=== PATIENT | female | born 1935 | race Caucasian/White ===

== ENCOUNTER 2018-12-11 16:06 | Inpatient (IN) | payer MEDICARE, BC ==
[~2018-12-11] VITALS: Ht 167.6 cm; Wt 83.0 kg
[2018-12-11 16:43] LABS: BASOPHILS % (AUTO) 0.5 % (0.0-2.0); HEMATOCRIT 31 % (33-45); HEMOGLOBIN 10.5 g/dL (11.5-14.8); LYMPHOCYTES # (AUTO) 1.2 /CMM (0.8-4.8); LYMPHOCYTES % (AUTO) 24.9 % (20.0-44.0); MEAN CORPUSCULAR HGB CONC 34 g/dl (31.0-36.0); MEAN CORPUSCULAR VOLUME 102 fL (82-100); MONOCYTES # (AUTO) 0.3 /CMM (0.1-1.30); MONOCYTES % (AUTO) 6.9 % (2.0-12.0); NEUTROPHILS % (AUTO) 63.7 % (43.0-81.0); PLATELET COUNT (AUTO) 138 /CMM (150-450); RED BLOOD CELL COUNT(AUTO) 3.09 MIL/uL (4.0-5.2); WHITE BLOOD COUNT (AUTO) 4.7 K/uL (4.3-11.0)
[2018-12-11 16:50] LABS: CALCIUM, SERUM 8.3 mg/dL (8.5-10.1); CARBON DIOXIDE 25 mmol/L (21-32); CHLORIDE 106 mmol/L (98-107); CREATININE 1.9 mg/dL (0.6-1.3); GLUCOSE 183 mg/dL (74-106); POTASSIUM 4.1 mmol/L (3.5-5.1); SODIUM SERUM 139 mmol/L (136-145); UREA NITROGEN, BLOOD 27 mg/dL (7-18)
[2018-12-11 16:56] LABS: ACETAMINOPHEN 2 ug/ml (10-30); ALANINE AMINOTRANSFERASE 17 U/L (12-78); ALBUMIN 3.1 g/dL (3.4-5.0); ALCOHOL, BLOOD < 3 mg/dL (0-0); ALKALINE PHOSPHATASE 66 U/L (46-116); ASPARTATE AMINOTRANSFERASE 15 U/L (15-37); BILIRUBIN,TOTAL 0.1 mg/dL (0.2-1.0); SALICYLATE 0.8 mg/dL (2.8-20.0); TOTAL PROTEIN, SERUM 6.6 g/dL (6.4-8.2)
--- NOTE | 2018-12-11 17:12 | NUR ---
BIB SON CLEARANCE FOR PSYCH ADMISSION, WORSENING DEMENTIA. PT AAOX3, VSS. DENIES CP, SOB, DIZZINESS, N/V, WEAKNESS AT THIS TIME. PT SEEN & EVAL'D BY DR. RICHTER. FAMILY AT BS & WILL CONT TO MONITOR.
--- NOTE | 2018-12-11 17:14 | NUR ---
YOLI CALLED FOR PSYCH EVAL. ETA 40 MINS.
[2018-12-11 17:41] LABS: APPEARANCE,URINE Clear (CLEAR); BILIRUBIN,URINE Negative (NEGATIVE); BLOOD, URINE Trace-intact Ery/uL (NEGATIVE); COLOR,URINE Yellow (YELLOW); KETONES,URINE Negative (NEGATIVE); LEUKOCYTE ESTERASE ,URINE Small (NEGATIVE); NITRITE, URINE Negative (NEGATIVE); PH,URINE 5.5 (5.0-8.0); PROTEIN,URINE Negative (NEGATIVE); UGLUCOSE Negative (NEGATIVE); UROBILINOGEN,URINE 0.2 EU/dL (0.2)
[2018-12-11 17:57] LABS: RBC,URINE 0-3 /HPF (0-2)
[2018-12-11 17:58] LABS: SQUAMOUS EPITHELIAL CELL,UR Few /HPF (None Seen)
[2018-12-11 17:59] LABS: BACTERIA,URINE Few /HPF (None Seen)
[2018-12-11] MEDS ORDERED: CEPHALEXIN MONOHYDRATE 500 MG CAPSULE PO ONE ×2 (18:00→18:10)
[2018-12-11] MEDS ORDERED: IBUP-1953 PO (18:50)
[2018-12-11] MEDS ORDERED: ESCI10TA PO (18:50)
[2018-12-11] MEDS ORDERED: MULT-447 PO (18:50)
[2018-12-11] MEDS ORDERED: ACET-868 PO (18:50)
[2018-12-11] MEDS ORDERED: GABA-532 PO (18:50)
[2018-12-11] MEDS ORDERED: LEVO75TA7 PO (18:50)
[2018-12-11] MEDS ORDERED: CHOL100040 PO (18:50)
[2018-12-11] MEDS ORDERED: ACET325T53 PO (18:50)
[2018-12-11] MEDS ORDERED: MELA3TAB PO (18:50)
[2018-12-11] MEDS ORDERED: AMLO10TA4 PO (18:50)
[2018-12-11] MEDS ORDERED: DONE5TAB34 PO (18:50)
[2018-12-11] MEDS ORDERED: MOME45CR20 TP (18:50)
[2018-12-11] MEDS ORDERED: LIDO28.310 TP (18:50)
[2018-12-11] MEDS ORDERED: MEMA28CA PO (18:50)
[2018-12-11] MEDS ORDERED: HYDR-4384 PO (18:50)
[2018-12-11] MEDS ORDERED: CALC-903 PO (18:50)
[2018-12-11] MEDS ORDERED: LACT-179 PO (18:50)
[2018-12-11] MEDS ORDERED: HYDR453.3 TP (18:50)
[2018-12-11] MEDS ORDERED: LISI10TA5 PO (18:50)
[2018-12-11] MEDS ORDERED: LORA0.5T PO (18:50)
[2018-12-11] MEDS ORDERED: [UNRECOGNIZED DRUG - OTHER] (18:50)
--- NOTE | 2018-12-11 19:01 | NUR ---
REPORT GIVEN TO AMANDA PAEZ. AWAITING TRANSFER TO FLOOR.
[2018-12-11 19:53] VITALS: BP 118/76
[2018-12-11] MEDS ORDERED: MAGNESIUM HYDROXIDE 30 ML UDC PO PRN (20:00)
[2018-12-11] MEDS ORDERED: MAG HYDROX/AL HYDROX/SIMETH 30 ML UDC PO PRN (20:00)
--- NOTE | 2018-12-11 20:00 | NUR ---
ADMITTED THIS 83 YEARS OLD FEMALE FROM HOME, PATIENT WASL PLACED 5150 HOLD DUE TO GD, AND PSYCHOSIS,NOS, PER HOLD PATIENT WAS MUMBLING HER SELF CONFUSED, AND NOT TAKING CARE OF HER SELF. PATIENT IS ALERT, ORIENTED X2 DENIES ANY PAIN OR DISCOMFORT AT THIS TIME UPON FACE TO FACE ASSESSMENT PATIENT REFUSED ANY SI/HI AT THIS TIME, BUT VERY ANXIOUS AND WANDERING AROUND WHY I AM HERE. PATIENT WAS ADVISED OF THE HOLD. PATIENT RIGHT DISCUSSED GUIDED TO PRESCRIPTIONS MEDICATION PROVIDED. ADVISEMENT EXPLAIN AND HAND OVER TO THE PATIENT WITH HOSPITAL POLICY AND HAND BOOK . PATIENT REFUSED TO SIGN THE CONSENT PAPER, DR. JAUREGUI AND DR. ANASTASIIA MADERA NOTIFY REGARDING THE PATIENT ADMISSION HERE IN [facility] MED RECON IS DONE SKIN ASSESSMENT IS DONE NO OPEN WOUND OR BRUISES NOTED SKIN IS INTACT AND PATENT CALL LIGHT WITHIN EASY REACH WILL CONTINUES TO MINITOR THE PATIENT EVERY 15 MINS FOR SAFETY AND FALL .
[2018-12-11] MEDS: ACETAMINOPHEN 325 MG TABLET PO PRN (20:06)
[2018-12-11] MEDS ORDERED: IBUPROFEN 400 MG TABLET PO PRN (23:00)
[2018-12-11] MEDS ORDERED: HYDROCORTISONE 2.5% CREAM 28.4 GM TUBE TP PRN (23:00)
[2018-12-11] MEDS ORDERED: ACETAMINOPHEN 325 MG TABLET PO PRN (23:00)
[2018-12-12] MEDS: LORAZEPAM 0.5 MG TABLET PO PRN ×2 (00:43→08:01)
[2018-12-12] MEDS: CEPHALEXIN MONOHYDRATE 250 MG CAPSULE PO SCH ×4 (00:46→23:00)
[2018-12-12] MEDS: TEMAZEPAM 7.5 MG CAPSULE PO PRN (00:46)
[2018-12-12 08:00] VITALS: BP 156/55
[2018-12-12] MEDS: LEVOTHYROXINE SODIUM 75 MCG TABLET PO SCH (08:01)
--- NOTE | 2018-12-12 08:04 | NUR ---
RN NOTE: PATIENT IS HAVING INCREASED ANXIETY. PRN ATIVAN GIVEN. WILL CONTINUE TO MONITOR.
[2018-12-12] MEDS: AMLODIPINE BESYLATE 10 MG TABLET PO SCH (08:54)
[2018-12-12] MEDS: LISINOPRIL (10MG) 10 MG TABLET PO SCH (08:55)
[2018-12-12] MEDS: ENSURE ENLIVE CHOC 237 ML CAN PO SCH (09:00)
[2018-12-12] MEDS ORDERED: CLONIDINE HCL 0.1 MG TABLET PO PRN (11:00)
--- NOTE | 2018-12-12 12:14 | NUR ---
RN NOTE: INFORMED KITCHEN THAT PATIENT'S ENSURE IS MISSING. STATED THEY WOULD BRING ONE UP.
--- NOTE | 2018-12-12 14:59 | NUR ---
SW contacted pts son Torsten [phone] and discussed treatment planning, discharge planning, and provided SW with collateral information. Son stated that he wishes for pt to be discharged to [facility]. DEDRA will fax referral once pt is stable.
--- NOTE | 2018-12-12 15:18 | NUR ---
INITIAL DISCHARGE PLAN: Per son Torsten [phone] he wishes for pt to be discharged to [facility]. SW will fax referral one pt is stable. SW will help form a safe and proper discharge in collaboration with .
[2018-12-12 16:25] VITALS: BP 116/58
[2018-12-12] MEDS ORDERED: SERTRALINE HCL 25 MG TABLET PO SCH (17:00)
[2018-12-12] MEDS: busPIRone 5 MG TABLET PO SCH (17:09)
--- NOTE | 2018-12-12 18:31 | NUR ---
RN NOTE: PATIENT'S SON CALLED ME ASKING ME TO COMMUNICATE WITH THE MD AND PSYCH ABOUT MEDICATIONS: DONEPEZIL, LEXAPRO, GABAPENTIN, AND MEMANTINE. SPOKE WITH DR. JAUREGUI AND FABIANO ABOUT THE MEDICATIONS.DR JAUREGUI HAD ALREADY REVIEWED THE MEDICATIONS AND DR MARIO WILL BE COMING IN 12/13/2018. SON CANE TO VISIT THE PATIENT TODAY AND I INFORMED HIM OF THE CONVERSATIONS. I ALSO PROVIDED INFORMATION ABOUT ZOLOFT AND BUSPAR (NEW PSYCH MEDS PATIENT RECEIVING). WILL ENDORSE TO FOLLOWING SHIFT ABOUT MEDS FOR DR. MARIO TO REVIEW.
--- NOTE | 2018-12-12 18:45 | NUR ---
RN NOTE: PATIENT IS MORE CALM THAN THIS MORNING. LESS ATTEMPTS TO ESCAPE FACILITY.
[2018-12-12 20:00] VITALS: BP 157/76
[2018-12-13] MEDS: TEMAZEPAM 7.5 MG CAPSULE PO PRN (00:04)
[2018-12-13 07:06] LABS: BASOPHILS % (AUTO) 0.5 % (0.0-2.0); EOSINOPHILS % (AUTO) 6.8 % (0.0-6.0); HEMATOCRIT 34 % (33-45); HEMOGLOBIN 11.5 g/dL (11.5-14.8); LYMPHOCYTES # (AUTO) 1.5 /CMM (0.8-4.8); LYMPHOCYTES % (AUTO) 31.8 % (20.0-44.0); MEAN CORPUSCULAR HGB CONC 34 g/dl (31.0-36.0); MEAN CORPUSCULAR VOLUME 100 fL (82-100); MONOCYTES # (AUTO) 0.3 /CMM (0.1-1.30); MONOCYTES % (AUTO) 7.5 % (2.0-12.0); NEUTROPHILS # (AUTO) 2.5 /CMM (1.8-8.9); NEUTROPHILS % (AUTO) 53.4 % (43.0-81.0); PLATELET COUNT (AUTO) 149 /CMM (150-450); RED BLOOD CELL COUNT(AUTO) 3.39 MIL/uL (4.0-5.2); WHITE BLOOD COUNT (AUTO) 4.6 K/uL (4.3-11.0)
[2018-12-13 07:17] LABS: CHOLESTEROL 210 mg/dL (<200); HDL CHOLESTEROL 54 mg/dL (40-60); LDL 145 mg/dL (0-99); TRIGLYCERIDES 95 mg/dL (30-150)
[2018-12-13 07:18] LABS: ALANINE AMINOTRANSFERASE 19 U/L (12-78); ALBUMIN 3.5 g/dL (3.4-5.0); ALKALINE PHOSPHATASE 68 U/L (46-116); ASPARTATE AMINOTRANSFERASE 19 U/L (15-37); BILIRUBIN,TOTAL 0.4 mg/dL (0.2-1.0); CALCIUM, SERUM 8.9 mg/dL (8.5-10.1); CARBON DIOXIDE 28 mmol/L (21-32); CHLORIDE 106 mmol/L (98-107); CREATININE 1.8 mg/dL (0.6-1.3); GLUCOSE 86 mg/dL (74-106); POTASSIUM 4.3 mmol/L (3.5-5.1); SODIUM SERUM 141 mmol/L (136-145); TOTAL PROTEIN, SERUM 7.2 g/dL (6.4-8.2); UREA NITROGEN, BLOOD 30 mg/dL (7-18)
[2018-12-13 08:00] VITALS: BP 153/84
[2018-12-13] MEDS: LISINOPRIL (10MG) 10 MG TABLET PO SCH (08:18)
[2018-12-13] MEDS: LEVOTHYROXINE SODIUM 75 MCG TABLET PO SCH (08:18)
[2018-12-13] MEDS: busPIRone 5 MG TABLET PO SCH ×2 (08:18→16:13)
[2018-12-13] MEDS: AMLODIPINE BESYLATE 10 MG TABLET PO SCH (08:18)
[2018-12-13] MEDS: ENSURE ENLIVE CHOC 237 ML CAN PO SCH (08:19)
[2018-12-13] MEDS: CEPHALEXIN MONOHYDRATE 250 MG CAPSULE PO SCH ×2 (08:57→16:13)
[2018-12-13 16:00] VITALS: BP 138/65
[2018-12-13] MEDS: SERTRALINE HCL 25 MG TABLET PO SCH (16:13)
[2018-12-13] MEDS: DIVALPROEX SODIUM 250 MG TABLET.DR PO SCH (19:38)
[2018-12-13 20:00] VITALS: BP 154/54
[2018-12-14] MEDS: CEPHALEXIN MONOHYDRATE 250 MG CAPSULE PO SCH ×3 (01:41→17:05)
[2018-12-14] MEDS ORDERED: ONDANSETRON HCL/PF 4 MG/2 ML VIAL ONE (07:03)
[2018-12-14 08:00] VITALS: BP 147/71
[2018-12-14] MEDS: LEVOTHYROXINE SODIUM 75 MCG TABLET PO SCH (08:07)
[2018-12-14] MEDS: busPIRone 5 MG TABLET PO SCH ×2 (08:07→17:06)
[2018-12-14] MEDS: AMLODIPINE BESYLATE 10 MG TABLET PO SCH (08:08)
[2018-12-14] MEDS: LISINOPRIL (10MG) 10 MG TABLET PO SCH (08:08)
[2018-12-14] MEDS: ACETAMINOPHEN 325 MG TABLET PO PRN (08:11)
[2018-12-14] MEDS: ENSURE ENLIVE CHOC 237 ML CAN PO SCH (10:40)
[2018-12-14 16:00] VITALS: BP 155/62
[2018-12-14] MEDS: SERTRALINE HCL 25 MG TABLET PO SCH (17:05)
[2018-12-14] MEDS: MEMANTINE HCL 5 MG TABLET PO SCH (17:06)
--- NOTE | 2018-12-14 19:38 | NUR ---
FAMILY VISITS AT THE BEDSIDE. PATIENT AWAKE, ALERT, ORIENTED X1, CONFUSED.
[2018-12-14] MEDS: DIVALPROEX SODIUM 250 MG TABLET.DR PO SCH (19:46)
[2018-12-14 20:12] VITALS: BP 153/68
[2018-12-15] MEDS: CEPHALEXIN MONOHYDRATE 250 MG CAPSULE PO SCH ×3 (01:19→16:22)
[2018-12-15 08:00] VITALS: BP 159/59
[2018-12-15] MEDS: LEVOTHYROXINE SODIUM 75 MCG TABLET PO SCH (09:03)
[2018-12-15] MEDS: ENSURE ENLIVE CHOC 237 ML CAN PO SCH (09:03)
[2018-12-15] MEDS: MEMANTINE HCL 5 MG TABLET PO SCH ×2 (09:03→16:22)
[2018-12-15] MEDS: AMLODIPINE BESYLATE 10 MG TABLET PO SCH (09:03)
[2018-12-15] MEDS: LISINOPRIL (10MG) 10 MG TABLET PO SCH (09:03)
[2018-12-15] MEDS: busPIRone 5 MG TABLET PO SCH ×2 (09:05→16:22)
--- NOTE | 2018-12-15 15:33 | NUR ---
GPS RN NOTES RECEIVED CALL FROM SONMU, IS ASKING IF WE CAN RESUME DONEPEZIL AND MVI MEDICATIONS WERE HELD UPON PATIENT ADMISSION. PLACED CALL TO YUNG SANDERSON RECEIVER SETTER AND MADE AWARE, GAVE OK TO RESUME DONEPEZIL AND CONVERT MULTIVITAMINS TO PHARMACY MVI PO QD. ORDERS NOTED AND CARRIED OUT. PATIENT AND SON MADE AWARE AND VERBALIZED UNDERSTANDING. WILL CONTINUE TO MONITOR
[2018-12-15] MEDS: SERTRALINE HCL 25 MG TABLET PO SCH (16:22)
[2018-12-15 16:46] VITALS: BP 155/61
[2018-12-15 20:27] VITALS: BP 118/47
[2018-12-15] MEDS: DIVALPROEX SODIUM 250 MG TABLET.DR PO SCH (21:00)
[2018-12-15] MEDS: DONEPEZIL 5 MG TABLET PO SCH (21:11)
[2018-12-16] MEDS: CEPHALEXIN MONOHYDRATE 250 MG CAPSULE PO SCH ×4 (00:49→23:14)
[2018-12-16 07:43] LABS: CALCIUM, SERUM 8.6 mg/dL (8.5-10.1); CARBON DIOXIDE 24 mmol/L (21-32); CHLORIDE 107 mmol/L (98-107); CREATININE 1.6 mg/dL (0.6-1.3); GLUCOSE 97 mg/dL (74-106); POTASSIUM 3.8 mmol/L (3.5-5.1); SODIUM SERUM 142 mmol/L (136-145); UREA NITROGEN, BLOOD 27 mg/dL (7-18)
[2018-12-16 08:00] VITALS: BP 152/70
[2018-12-16] MEDS: LEVOTHYROXINE SODIUM 75 MCG TABLET PO SCH (08:27)
[2018-12-16] MEDS: MULTIVIT W/MINERALS 1 TAB TABLET PO SCH (08:27)
[2018-12-16] MEDS: MEMANTINE HCL 5 MG TABLET PO SCH ×2 (08:27→16:27)
[2018-12-16] MEDS: AMLODIPINE BESYLATE 10 MG TABLET PO SCH (08:28)
[2018-12-16] MEDS: busPIRone 5 MG TABLET PO SCH ×2 (08:28→16:27)
[2018-12-16] MEDS: LISINOPRIL (10MG) 10 MG TABLET PO SCH (08:28)
[2018-12-16] MEDS: ENSURE ENLIVE CHOC 237 ML CAN PO SCH (08:28)
--- NOTE | 2018-12-16 08:30 | NUR ---
DEDRA faxed SNF referral to Christina, store coordinator at [facility] Address: [address], [place] [address] for review.
--- NOTE | 2018-12-16 15:23 | NUR ---
DEDRA received a phone call from Christina, dye and chemical coordinator at [facility] Address: [address], [place] [address] stating pt has been accepted to the facility. DEDRA informed her pt will be discharged on Sunday12/18/18.
[2018-12-16 16:00] VITALS: BP 131/58
[2018-12-16] MEDS: SERTRALINE HCL 25 MG TABLET PO SCH (16:27)
[2018-12-16 20:00] VITALS: BP 139/59
[2018-12-16] MEDS: DIVALPROEX SODIUM 250 MG TABLET.DR PO SCH (20:59)
[2018-12-16] MEDS: DONEPEZIL 5 MG TABLET PO SCH (21:00)
[2018-12-16] MEDS: TEMAZEPAM 7.5 MG CAPSULE PO PRN (22:45)
[2018-12-17 06:37] LABS: BASOPHILS % (AUTO) 0.4 % (0.0-2.0); EOSINOPHILS % (AUTO) 4.7 % (0.0-6.0); HEMATOCRIT 31 % (33-45); HEMOGLOBIN 10.4 g/dL (11.5-14.8); LYMPHOCYTES # (AUTO) 1.8 /CMM (0.8-4.8); LYMPHOCYTES % (AUTO) 32.6 % (20.0-44.0); MEAN CORPUSCULAR HGB CONC 34 g/dl (31.0-36.0); MEAN CORPUSCULAR VOLUME 101 fL (82-100); MONOCYTES # (AUTO) 0.6 /CMM (0.1-1.30); MONOCYTES % (AUTO) 10.3 % (2.0-12.0); NEUTROPHILS # (AUTO) 2.8 /CMM (1.8-8.9); PLATELET COUNT (AUTO) 133 /CMM (150-450); RED BLOOD CELL COUNT(AUTO) 3.06 MIL/uL (4.0-5.2); WHITE BLOOD COUNT (AUTO) 5.4 K/uL (4.3-11.0)
[2018-12-17 06:56] LABS: VALPROIC ACID 36 ug/mL (50-100)
[2018-12-17 07:07] LABS: ALANINE AMINOTRANSFERASE 19 U/L (12-78); ALBUMIN 3.1 g/dL (3.4-5.0); ALKALINE PHOSPHATASE 53 U/L (46-116); ASPARTATE AMINOTRANSFERASE 12 U/L (15-37); BILIRUBIN,TOTAL 0.4 mg/dL (0.2-1.0); CALCIUM, SERUM 8.8 mg/dL (8.5-10.1); CARBON DIOXIDE 25 mmol/L (21-32); CHLORIDE 106 mmol/L (98-107); CREATININE 1.7 mg/dL (0.6-1.3); GLUCOSE 83 mg/dL (74-106); POTASSIUM 4.1 mmol/L (3.5-5.1); SODIUM SERUM 140 mmol/L (136-145); TOTAL PROTEIN, SERUM 6.6 g/dL (6.4-8.2); UREA NITROGEN, BLOOD 38 mg/dL (7-18)
[2018-12-17 08:00] VITALS: BP 153/67
[2018-12-17] MEDS: LEVOTHYROXINE SODIUM 75 MCG TABLET PO SCH (08:11)
[2018-12-17] MEDS: MEMANTINE HCL 5 MG TABLET PO SCH ×2 (08:11→16:39)
[2018-12-17] MEDS: MULTIVIT W/MINERALS 1 TAB TABLET PO SCH (08:11)
[2018-12-17] MEDS: CEPHALEXIN MONOHYDRATE 250 MG CAPSULE PO SCH ×2 (08:11→16:39)
[2018-12-17] MEDS: busPIRone 5 MG TABLET PO SCH ×2 (08:11→16:39)
[2018-12-17] MEDS: ENSURE ENLIVE CHOC 237 ML CAN PO SCH (08:12)
[2018-12-17] MEDS: AMLODIPINE BESYLATE 10 MG TABLET PO SCH (08:12)
[2018-12-17] MEDS: LISINOPRIL (10MG) 10 MG TABLET PO SCH (08:12)
--- NOTE | 2018-12-17 11:50 | NUR ---
DEDRA contacted pts kim Sarmiento [phone] and informed him pt will be discharging tomorrow Sunday12/18/18 at 1:00pm to [facility]. Son agreed with discharge plan.
--- NOTE | 2018-12-17 15:57 | NUR ---
GROUP NOTE: SW attempted to engage pt in group therapy on this present day discussing poor life choices and how they have affected pts life. However, pt was unable to participate due to pt being cognitively impaired and not being able to engage in conversation.
[2018-12-17 16:00] VITALS: BP 102/75
[2018-12-17] MEDS: SERTRALINE HCL 25 MG TABLET PO SCH (16:39)
[2018-12-17 20:22] VITALS: BP 96/67
[2018-12-17] MEDS: DIVALPROEX SODIUM 250 MG TABLET.DR PO SCH (20:44)
[2018-12-17] MEDS: DONEPEZIL 5 MG TABLET PO SCH (21:04)
[2018-12-18 08:00] VITALS: BP 143/59
[2018-12-18] MEDS: MULTIVIT W/MINERALS 1 TAB TABLET PO SCH (08:16)
[2018-12-18] MEDS: LEVOTHYROXINE SODIUM 75 MCG TABLET PO SCH (08:16)
[2018-12-18] MEDS: LISINOPRIL (10MG) 10 MG TABLET PO SCH (08:17)
[2018-12-18] MEDS: busPIRone 5 MG TABLET PO SCH (08:17)
[2018-12-18] MEDS: MEMANTINE HCL 5 MG TABLET PO SCH (08:17)
[2018-12-18 08:18] VITALS: BP 143/59
[2018-12-18] MEDS: AMLODIPINE BESYLATE 10 MG TABLET PO SCH (08:18)
[2018-12-18] MEDS: ENSURE ENLIVE CHOC 237 ML CAN PO SCH (08:19)
[2018-12-18] MEDS: CEPHALEXIN MONOHYDRATE 250 MG CAPSULE PO SCH ×2 (08:52)
[2018-12-18 09:22] LABS: APPEARANCE,URINE CLEAR (CLEAR); BILIRUBIN,URINE NEGATIVE (NEGATIVE); BLOOD, URINE NEGATIVE Ery/uL (NEGATIVE); COLOR,URINE YELLOW (YELLOW); KETONES,URINE NEGATIVE (NEGATIVE); LEUKOCYTE ESTERASE ,URINE NEGATIVE (NEGATIVE); NITRITE, URINE NEGATIVE (NEGATIVE); PROTEIN,URINE NEGATIVE (NEGATIVE); UGLUCOSE NEGATIVE (NEGATIVE); UROBILINOGEN,URINE 0.2 EU/dL (0.2)
--- NOTE | 2018-12-18 10:24 | NUR ---
DISCHARGE NOTE: Pt will be discharged at 1:00pm via [facility]BULN[facility] to [facility] [address] [address] . Pts son Torsten [phone] has been notified and agrees with discharge plan. Pts mood is euthymic with congruent affect. Pt denied visual/auditory hallucinations and denied suicidal/homicidal ideations. Pt will be under the care of Psychiatrist: Dr. Mitzy Moscoso [address], [place] [address] [phone] and Bureau Director: Dr. Adan Rasmussen Address: [address], [place] [address] Phone: [phone]. The multidisciplinary exitcare form was done, printed, signed, and given to the patient.
--- NOTE | 2018-12-18 13:10 | NUR ---
GPS RN NOTE: PT DISCHARGE TO [facility] [address] [facility] [facility] [address]. PT IN STABLE CONDITION, NO S/S DISTRESS NOTED, VSS, PT CONFUSED, A/OX1, AMBULATORY. DENIES SI/HI. DR. JUVENTINO Silverio ORDER DC HOLD DC PT TO SNF. MEDICATIONS RECONCILIATION DONE PRINTED GIVEN TO PT. EXIT CARE DONE PRINTED, PT REFUSED DO SIGN. PT SKIN INTACT ALL BELONGINGS RETURNED TO PT. NO S/S DISTRESS NOTED.
== END 2018-12-18 13:10 | DRG 885 ==
LOC: ER 16:06 → GPS 18:58
PROVIDERS: ADMIT Psychiatry & Neurology Psychosomatic Medicine; ATTEND Nurse Practitioner Acute Care
DX: F33.2 Major depressive disorder, recurrent severe without psychotic features (principal); F01.50 Vascular dementia, unspecified severity, without behavioral disturbance, psychotic disturbance, mood disturbance, and anxiety; N17.0 Acute kidney failure with tubular necrosis; N18.4 Chronic kidney disease, stage 4 (severe); E44.1 Mild protein-calorie malnutrition; F23 Brief psychotic disorder; N39.0 Urinary tract infection, site not specified; F29 Unspecified psychosis not due to a substance or known physiological condition; F41.9 Anxiety disorder, unspecified; D63.8 Anemia in other chronic diseases classified elsewhere; E66.01 Morbid (severe) obesity due to excess calories; D75.89 Other specified diseases of blood and blood-forming organs; I12.9 Hypertensive chronic kidney disease with stage 1 through stage 4 chronic kidney disease, or unspecified chronic kidney disease; E88.09 Other disorders of plasma-protein metabolism, not elsewhere classified; R73.9 Hyperglycemia, unspecified; E89.0 Postprocedural hypothyroidism; M47.812 Spondylosis without myelopathy or radiculopathy, cervical region; Z90.710 Acquired absence of both cervix and uterus; Z68.29 Body mass index [BMI] 29.0-29.9, adult
CPT/HCPCS: 36415; 80048-TC; 80053-TC; 80061-TC; 80076-TC; 80164-TC; 80305; 81000-TC; 85025-TC; 87081-TC; 87086-TC; G0480; J2405

== ENCOUNTER 2019-02-10 14:46 | Inpatient (IN) | payer MEDICARE, BC ==
[~2019-02-10] VITALS: Ht 167.6 cm; Wt 68.0 kg
[~2019-02-10 14:46] MED LIST: ACET-868 PO; ACET325T53 PO; AMLO10TA4 PO; CALC-903 PO; CHOL100040 PO; DONE5TAB34 PO; ESCI10TA PO; GABA-532 PO; HYDR-4384 PO; HYDR453.3 TP; IBUP-1953 PO; LACT-179 PO; LEVO75TA7 PO; LIDO28.310 TP; LISI10TA5 PO; LORA0.5T PO; MELA3TAB PO; MEMA28CA PO; MOME45CR20 TP; MULT-447 PO; [UNRECOGNIZED DRUG - OTHER]
--- NOTE | 2019-02-10 14:55 | NUR ---
CHASITY, FROM [facility] SENT BY DR GARCIA FOR COUGH x 2 DAYS AND FEVER 101.2 F TYLENOL 650 MG GIVEN , ALSO C/O R EYE REDNESS STARTED THIS MORNING. TO ER BED 9, PATIENT AFEBRILE AT 98.2F, CHANGED TO GOWN, PROVIDED W WARM BLANKET, AWAITING MD JARA.
--- NOTE | 2019-02-10 15:02 | NUR ---
DR FISHER AT BEDSIDE
[2019-02-10] MEDS ORDERED: CRAN450C PO (15:11)
[2019-02-10] MEDS ORDERED: MAG-55 PO (15:11)
[2019-02-10] MEDS ORDERED: BUSP5TAB3 PO (15:11)
[2019-02-10] MEDS ORDERED: NA P133E RC (15:11)
[2019-02-10] MEDS ORDERED: SERT50TA PO (15:11)
[2019-02-10] MEDS ORDERED: MAGN400O6 PO (15:11)
[2019-02-10] MEDS ORDERED: DIVA500T2 PO (15:11)
[2019-02-10] MEDS ORDERED: CLON0.1T PO (15:11)
[2019-02-10] MEDS ORDERED: DOCU-141 PO (15:11)
[2019-02-10 15:14] LABS: BASOPHILS % (AUTO) 0.3 % (0.0-2.0); EOSINOPHILS % (AUTO) 2.9 % (0.0-6.0); HEMATOCRIT 33 % (33-45); HEMOGLOBIN 11.3 g/dL (11.5-14.8); LYMPHOCYTES % (AUTO) 17.3 % (20.0-44.0); MEAN CORPUSCULAR HGB CONC 34 g/dl (31.0-36.0); MEAN CORPUSCULAR VOLUME 100 fL (82-100); MONOCYTES # (AUTO) 0.6 /CMM (0.1-1.30); MONOCYTES % (AUTO) 10.8 % (2.0-12.0); NEUTROPHILS # (AUTO) 4.1 /CMM (1.8-8.9); NEUTROPHILS % (AUTO) 68.7 % (43.0-81.0); PLATELET COUNT (AUTO) 170 /CMM (150-450); RED BLOOD CELL COUNT(AUTO) 3.34 MIL/uL (4.0-5.2)
--- NOTE | 2019-02-10 15:24 | NUR ---
URINE SAMPLE SENT TO LAB
[2019-02-10 15:30] LABS: ALANINE AMINOTRANSFERASE 74 U/L (12-78); ALBUMIN 3.1 g/dL (3.4-5.0); ALKALINE PHOSPHATASE 173 U/L (46-116); ASPARTATE AMINOTRANSFERASE 42 U/L (15-37); BILIRUBIN,DIRECT 0.1 mg/dL (0.0-0.2); BILIRUBIN,TOTAL 0.3 mg/dL (0.2-1.0); CALCIUM, SERUM 9.1 mg/dL (8.5-10.1); CARBON DIOXIDE 28 mmol/L (21-32); CHLORIDE 105 mmol/L (98-107); CREATININE 1.5 mg/dL (0.6-1.3); GLUCOSE 98 mg/dL (74-106); POTASSIUM 3.9 mmol/L (3.5-5.1); SODIUM SERUM 141 mmol/L (136-145); TOTAL PROTEIN, SERUM 7.2 g/dL (6.4-8.2); UREA NITROGEN, BLOOD 18 mg/dL (7-18)
[2019-02-10] MEDS ORDERED: CEFTRIAXONE 1GM BAG (ER ONLY) 1 GM/50 ML PIGGYBACK IV ONE (15:30)
[2019-02-10] MEDS ORDERED: IV NS 0.9% 1,000 ML BAG IV ONE (15:30)
[2019-02-10] MEDS ORDERED: CEFTRIAXONE 1GM BAG (ER ONLY) 50 ML IV ONE (15:37)
[2019-02-10 15:47] LABS: APPEARANCE,URINE Clear (CLEAR); BILIRUBIN,URINE Negative (NEGATIVE); BLOOD, URINE Negative Ery/uL (NEGATIVE); COLOR,URINE Yellow (YELLOW); KETONES,URINE Negative (NEGATIVE); LEUKOCYTE ESTERASE ,URINE Negative (NEGATIVE); NITRITE, URINE Negative (NEGATIVE); PH,URINE 6.5 (5.0-8.0); PROTEIN,URINE Negative (NEGATIVE); UGLUCOSE Negative (NEGATIVE); UROBILINOGEN,URINE 0.2 EU/dL (0.2)
--- NOTE | 2019-02-10 16:09 | NUR ---
RAPID INFLUENZA SWAB SENT TO LAB
--- NOTE | 2019-02-10 16:50 | NUR ---
RN NOTE: RECEIVED REPORT FROM PHILIPPE LADD FROM ER.
--- NOTE | 2019-02-10 16:50 | NUR ---
REPORT GIVEN TO ALBERT PAEZ OF TELE UNIT
--- NOTE | 2019-02-10 17:03 | NUR ---
CALLED [facility], PAGED JASON
[2019-02-10] MEDS ORDERED: ACETAMINOPHEN 325 MG TABLET PO PRN (17:30)
[2019-02-10] MEDS ORDERED: Z GUARD REMEDY 2 OZ OINT TP PRN (17:30)
[2019-02-10] MEDS ORDERED: ONDANSETRON HCL/PF 4 MG/2 ML VIAL IVP PRN (17:30)
[2019-02-10] MEDS ORDERED: HYDROCODONE/APAP 5/325MG 1 EACH TABLET PO PRN (17:30)
[2019-02-10] MEDS ORDERED: MAGNESIUM HYDROXIDE 30 ML UDC PO PRN (17:30)
[2019-02-10] MEDS ORDERED: MAG HYDROX/AL HYDROX/SIMETH 30 ML UDC PO PRN (17:30)
[2019-02-10 18:10] VITALS: BP 109/54
--- NOTE | 2019-02-10 18:10 | NUR ---
WORM SORTER NOTES PATIENT CAME IN VIA GURNEY FROM ER. AMBULATED TO HER BED, AWAKE AND VERY CONFUSED. AMBULATORY WITH ASSIST. PATIENT ORIENTED TO ROOM. BED LOCKED AND IN LOWEST POSITION. VSS. CALL LIGHT WITHIN REACH. ADMISSION ORDERS PENDING. ON ROOM AIR, NO COMPLAINS OF ANY SOB NOR PAIN AT THIS TIME. ON TELE MONITOR, SR 77. ON DIAPER, INCONTINENT. HAS RIGHT AC #20 SALINE LOCKED AT THIS TIME. TROPONIN ELEVATED. URINALYSIS NEGATIVE. WAS GIVEN ROCEPHIN 1G AND 2.2L OF NS. WILL ENDORSE TO NOC SHIFT FOR ILDEFONSO
[2019-02-10] MEDS: IV NS 0.9% 1,000 ML IV PRN (18:44)
--- NOTE | 2019-02-10 19:28 | NUR ---
RN CLOSING NOTE PATIENT IN BED, VERY CONFUSED. FAMILY AT BEDSIDE, PATIENT SEEMS TO CALM DOWN BUT STILL ANXIOUS. REPORT GIVEN TO NOC SHIFT RN FOR ILDEFONSO. FAMILY WAS NOT AWARE ABOUT THE RIGHT EYE REDNESS. TOLD THEM THE MD IS AWARE AND THEY ARE REQUESTING IF WE CAN DO SOME TESTS. BED LOCKED AND IN LOWEST POSITION. CALL LIGHT WITHIN REACH. ENDORSED TO NOC SHIFT FOR ILDEFONSO
--- NOTE | 2019-02-10 19:30 | NUR ---
FORMULATION SCIENTIST OPENING NOTES RECEIVED PATIENT TRYING TO LEAVE BED, VERY CONFUSED AND NOT AWARE OF SURROUNDINGS, A/O X2. PATIENT CAN AMBULATE WITH ASSISTANCE. ON ROOM AIR TOLERATING WELL. NO COMPLAINS OF ANY SOB . SHE HAS COMPLAIN OF ABD PAIN AT THIS TIME. IV ACCESS WAS PULLED OFF BY PATIENT WILL START A NEW IV KELLEY. ON DIAPER, INCONTINENT. FAMILY AT BED SIDE. WILL CONTINUE TO MONITOR.
[2019-02-10 20:00] VITALS: BP 160/67
--- NOTE | 2019-02-10 22:40 | NUR ---
RN NOTES RESTLESS IN BED; C/O PAIN HOLDING HER ABDOMEN; NORCO WAS GIVEN EARLIER; DIAPER DRY; BLADDER DISTENDED; SCREAMS WHEN ABDOMEN IS TOUCHED. BLADDER SCAN DONE; RESULT >999 ; PRIMARY RN ANDRIY MADE AWARE; AWAITING FOR MD TO CALL BACK, WAS PAGED FOR ANOTHER PATIENT.
--- NOTE | 2019-02-11 00:30 | NUR ---
MS RN NOTE. BLADDER SCAN SHOWS OVER 900 CC URINE AND GOT PHONE ORDER TO INSERT LUNDBERG FORM DR. LUNDBERG WAS INSETRED AND DRAINED 950ML. WILL CONTINUE TO MONITOR.
[2019-02-11 04:00] VITALS: BP 140/61
[2019-02-11] MEDS ORDERED: CLONIDINE HCL 0.1 MG TABLET PO PRN (05:00)
[2019-02-11] MEDS: busPIRone 5 MG TABLET PO SCH ×3 (05:19→17:45)
[2019-02-11 06:43] LABS: BASOPHILS % (AUTO) 0.3 % (0.0-2.0); EOSINOPHILS % (AUTO) 1.6 % (0.0-6.0); HEMATOCRIT 31 % (33-45); HEMOGLOBIN 10.5 g/dL (11.5-14.8); LYMPHOCYTES # (AUTO) 1.4 /CMM (0.8-4.8); LYMPHOCYTES % (AUTO) 19.8 % (20.0-44.0); MEAN CORPUSCULAR HGB CONC 34 g/dl (31.0-36.0); MEAN CORPUSCULAR VOLUME 100 fL (82-100); MONOCYTES # (AUTO) 0.8 /CMM (0.1-1.30); MONOCYTES % (AUTO) 11.7 % (2.0-12.0); NEUTROPHILS # (AUTO) 4.6 /CMM (1.8-8.9); NEUTROPHILS % (AUTO) 66.6 % (43.0-81.0); PLATELET COUNT (AUTO) 159 /CMM (150-450)
[2019-02-11 06:47] LABS: CALCIUM, SERUM 8.3 mg/dL (8.5-10.1); CREATININE 1.3 mg/dL (0.6-1.3); MAGNESIUM 1.8 mg/dL (1.8-2.4); PHOSPHORUS 2.8 mg/dL (2.5-4.9)
--- NOTE | 2019-02-11 07:44 | NUR ---
PHARMACEUTICAL LABORATORY TECHNICIAN CLOSING NOTES PATIENT IS IN BED RESTING, SHE WAS VERY CONFUSED AND NOT AWARE OF SURROUNDINGS MOST OF THE NIGHT, A/O X2. PATIENT CAN AMBULATE WITH ASSISTANCE. ON ROOM AIR TOLERATING WELL. NO COMPLAINS OF ANY SOB . SHE HAS NO COMPLAIN OF PAIN AT THIS TIME. IV ACCESS ON ALLYSON #22. LUNDBERG CATHETER DRAINS WELL, NO COMPLICATION AT THIS TIME. WILL ENDOSE THE PATIENT TO AM RN FOR ILDEFONSO.
[2019-02-11] MEDS: DOCUSATE SODIUM 100 MG CAPSULE PO SCH (09:01)
[2019-02-11] MEDS: AMLODIPINE BESYLATE 10 MG TABLET PO SCH (09:01)
[2019-02-11] MEDS: LEVOTHYROXINE SODIUM 75 MCG TABLET PO SCH (09:02)
[2019-02-11] MEDS: LISINOPRIL (10MG) 10 MG TABLET PO SCH (09:02)
[2019-02-11] MEDS ORDERED: LEVOFLOXACIN 500 MG /D5W 100ML 500 MG in PREMIX 1 EA IV SCH (10:00)
[2019-02-11 12:00] VITALS: BP 138/62
[2019-02-11] MEDS: LEVOFLOXACIN 750 MG /D5W 150ML 750 MG in PREMIX 1 EA IV SCH (15:14)
[2019-02-11] MEDS: SERTRALINE HCL 50 MG TABLET PO SCH (17:46)
--- NOTE | 2019-02-11 19:30 | NUR ---
MS RN OPENING NOTE RECEIVED PATIENT ALERT AND ORIENTED X2 PATIENT IS CONFUSED BUT DOES NOT COMPLAIN OF ANY DISTRESS OF PAIN AT THIS TIME. SHE IS ON ROOM AIR WITH O2 AT 99%. HAS RIGHT HAND IV ACCESS #22 WITH NS RUNNING AT 75ML/HR. PATIENT HAS LUNDBERG WITH NO SIGN OF OBSTRUCTION. PATIENT CAN AMBULATE WITH ASSISTANCE. ALL SAFETY PRECAUTIONS ARE APPLIED, BED IS PLACED LOW, CALL LIGHT WITHIN REACH , SIDE RAILS UP X2, AND SITTER IS AT BEDSIDE. WILL CONTINUE TO MONITOR.
[2019-02-11 20:00] VITALS: BP 158/74
[2019-02-11] MEDS: DIVALPROEX SODIUM 500 MG TABLET.DR PO SCH (22:17)
[2019-02-11] MEDS: DONEPEZIL 5 MG TABLET PO SCH (22:17)
[2019-02-12] MEDS: ZOLPIDEM TARTRATE 5 MG TABLET PO PRN ×2 (01:03→21:41)
[2019-02-12 02:26] LABS: APPEARANCE,URINE Slightly Cloudy (CLEAR); BILIRUBIN,URINE Negative (NEGATIVE); BLOOD, URINE Large Ery/uL (NEGATIVE); COLOR,URINE Yellow (YELLOW); KETONES,URINE Negative (NEGATIVE); LEUKOCYTE ESTERASE ,URINE Negative (NEGATIVE); NITRITE, URINE Negative (NEGATIVE); PH,URINE 5.5 (5.0-8.0); PROTEIN,URINE 30 mg/dl (NEGATIVE); UGLUCOSE Negative (NEGATIVE); UROBILINOGEN,URINE 0.2 EU/dL (0.2)
[2019-02-12 02:30] LABS: BACTERIA,URINE None seen /HPF (None Seen); SQUAMOUS EPITHELIAL CELL,UR Few /HPF (None Seen); WBC,URINE 0-2 /HPF (0-3)
[2019-02-12 02:36] LABS: CREATININE, URINE 21.4 MG/DL (30.0-125.0); URINE TOTAL PROTEIN 38.7 mg/dL (0-11.9)
[2019-02-12 04:00] VITALS: BP 147/69
[2019-02-12] MEDS: IV NS 0.9% 1,000 ML IV PRN ×2 (05:47→21:22)
[2019-02-12 06:03] LABS: EOSINOPHIL,URINE Rare
--- NOTE | 2019-02-12 07:20 | NUR ---
RN OPENING NOTES: PATIENT IN BED. A&OX1. NO SOB. NO C/O PAIN. ALL SAFETY PRECAUTIONS PROVIDED. SITTER AT BEDSIDE. BED LOCKED AND IN LOW POSITION. BED ALARM ON. (R) HAND IV SITE 22G INTACT. CALL LIGHT WITHIN REACH. WILL CONT. TO MONITOR.
--- NOTE | 2019-02-12 07:41 | NUR ---
MS RN CLOSING NOTE PATIENT ASLEEP IN BED WITH NO SIGNS OF DISTRESS. ON ROOM AIR AND TOLERATING WELL. SITTER AT BEDSIDE AND ALL SAFETY PRECAUTIONS APPLIED. ENDORSED PATIENT TO MORNING NURSE
[2019-02-12 07:43] LABS: BASOPHILS % (AUTO) 0.6 % (0.0-2.0); EOSINOPHILS % (AUTO) 3.6 % (0.0-6.0); HEMATOCRIT 32 % (33-45); HEMOGLOBIN 10.8 g/dL (11.5-14.8); LYMPHOCYTES # (AUTO) 1.1 /CMM (0.8-4.8); LYMPHOCYTES % (AUTO) 20.9 % (20.0-44.0); MEAN CORPUSCULAR HGB CONC 34 g/dl (31.0-36.0); MEAN CORPUSCULAR VOLUME 99 fL (82-100); MONOCYTES # (AUTO) 0.5 /CMM (0.1-1.30); MONOCYTES % (AUTO) 8.9 % (2.0-12.0); NEUTROPHILS # (AUTO) 3.5 /CMM (1.8-8.9); PLATELET COUNT (AUTO) 161 /CMM (150-450); RED BLOOD CELL COUNT(AUTO) 3.22 MIL/uL (4.0-5.2); WHITE BLOOD COUNT (AUTO) 5.3 K/uL (4.3-11.0)
[2019-02-12 08:00] VITALS: BP 155/64
[2019-02-12 08:19] LABS: ALBUMIN 2.4 g/dL (3.4-5.0); BILIRUBIN,TOTAL 0.2 mg/dL (0.2-1.0); CALCIUM, SERUM 8.5 mg/dL (8.5-10.1); CREATININE 1.3 mg/dL (0.6-1.3); MAGNESIUM 1.6 mg/dL (1.8-2.4); PHOSPHORUS 2.7 mg/dL (2.5-4.9); TOTAL PROTEIN, SERUM 6.4 g/dL (6.4-8.2)
[2019-02-12] MEDS: AMLODIPINE BESYLATE 10 MG TABLET PO SCH (08:47)
[2019-02-12] MEDS: LEVOTHYROXINE SODIUM 75 MCG TABLET PO SCH (08:47)
[2019-02-12] MEDS: busPIRone 5 MG TABLET PO SCH ×2 (08:47→18:12)
[2019-02-12] MEDS: DOCUSATE SODIUM 100 MG CAPSULE PO SCH (08:47)
[2019-02-12] MEDS: LISINOPRIL (10MG) 10 MG TABLET PO SCH (08:48)
[2019-02-12] MEDS: Magnesium 1GM/D5W 100ML PREMIX 100 ML IV SCH ×2 (12:08→13:18)
[2019-02-12 16:00] VITALS: BP 148/54
[2019-02-12] MEDS: SERTRALINE HCL 50 MG TABLET PO SCH (18:12)
--- NOTE | 2019-02-12 18:43 | NUR ---
RN CLOSING NOTE PATIENT IN BED, AWAKE. SITTER AT BEDSIDE. CONFUSED AT TIMES. ALL MEDS GIVEN. ALL NEEDS MET. IVF RUNNING AT 75 ML/HR. NO COMPLAINS OF ANY PAIN NOR SOB AT THIS TIME. LUNDBERG CATH WITH YELLOW AND CLEAR URINE. SON WAS UPDATED REGARDING PATIENT'S DC PLANNING FOR TOMORROW. BED LOCKED AND IN LOWEST POSITION. CALL LIGHT WITHIN REACH. WILL ENDORSE TO NOC SHIFT FOR ILDEFONSO
[2019-02-12 20:00] VITALS: BP 140/68
[2019-02-12] MEDS: DIVALPROEX SODIUM 500 MG TABLET.DR PO SCH (21:40)
[2019-02-12] MEDS: DONEPEZIL 5 MG TABLET PO SCH (21:41)
--- NOTE | 2019-02-12 22:54 | NUR ---
MS/RN ON INITIAL ROUNDS AT 1930, FOUND PATIENT IS BED AWAKE, ALERT, DISORIENTED AND CONFUSED, NO C/O PAIN, NO DISTRESS NOTED, SITTER AT BEDSIDE. WILL MONITOR.
--- NOTE | 2019-02-12 23:30 | NUR ---
MS/RN PATIENT IS SLEEPING AT THIS TIME, APPEAR COMFORTABLE, NO SIGNS OF DISTRESS NOTED, SITTER AT BEDSIDE. WILL CONTINUE TO MONITOR.
[2019-02-13 04:00] VITALS: BP 134/73
--- NOTE | 2019-02-13 06:31 | NUR ---
MS/RN PATIENT IS AWAKE, COMFORTABLE, NO CHANGE IN CONDITION, ALL NEEDS ATTENDED AT THIS TIME, WILL CONTINUE TO MONITOR.
--- NOTE | 2019-02-13 07:15 | NUR ---
RN OPENING NOTES: PATIENT IN BED, ASLEEP, BUT EASILY AROUSABLE. A&OX1. NO SOB. NO C/O PAIN. ON LUNDBERG CATH PATENT AND DRAINING CLEAR YELLOW URINE. (R) HAND 22G IV SITE PATENT, INTACT, AND SALINE FLUSHED. BED LOCKED AND IN LOWEST POSITION. CALL LIGHT WITHIN REACH. WILL CONT. TO MONITOR.
[2019-02-13 07:38] LABS: BASOPHILS % (AUTO) 0.4 % (0.0-2.0); HEMATOCRIT 32 % (33-45); HEMOGLOBIN 10.6 g/dL (11.5-14.8); LYMPHOCYTES # (AUTO) 1.2 /CMM (0.8-4.8); MEAN CORPUSCULAR HGB CONC 34 g/dl (31.0-36.0); MEAN CORPUSCULAR VOLUME 99 fL (82-100); MONOCYTES # (AUTO) 0.5 /CMM (0.1-1.30); MONOCYTES % (AUTO) 9.6 % (2.0-12.0); PLATELET COUNT (AUTO) 166 /CMM (150-450); RED BLOOD CELL COUNT(AUTO) 3.18 MIL/uL (4.0-5.2)
[2019-02-13 08:00] VITALS: BP 146/62
[2019-02-13 08:06] LABS: *SPE A/G RATIO 0.9 (0.7-1.7); *SPE ALBUMIN 2.6 g/dL (2.9-4.4); *SPE ALPHA-1-GLOBULIN 0.2 g/dL (0.0-0.4); *SPE ALPHA-2-GLOBULIN 0.7 g/dL (0.4-1.0); *SPE M-SPIKE Not Observed g/dL (Not Observed); *SPEGAMMA GLOBULIN 1.1 g/dL (0.4-1.8)
[2019-02-13 08:23] LABS: CALCIUM, SERUM 8.3 mg/dL (8.5-10.1); CREATININE 1.3 mg/dL (0.6-1.3); POTASSIUM 4.1 mmol/L (3.5-5.1)
[2019-02-13] MEDS: AMLODIPINE BESYLATE 10 MG TABLET PO SCH (09:00)
[2019-02-13] MEDS: DOCUSATE SODIUM 100 MG CAPSULE PO SCH (09:00)
[2019-02-13 09:01] VITALS: BP 146/62
[2019-02-13] MEDS: busPIRone 5 MG TABLET PO SCH (09:01)
[2019-02-13] MEDS: LEVOTHYROXINE SODIUM 75 MCG TABLET PO SCH (09:01)
[2019-02-13] MEDS: LISINOPRIL (10MG) 10 MG TABLET PO SCH (09:01)
[2019-02-13] MEDS ORDERED: LEVO750T46 PO (10:22)
[2019-02-13] MEDS: LEVOFLOXACIN 750 MG /D5W 150ML 750 MG in PREMIX 1 EA IV SCH (11:00)
[2019-02-13] MEDS: IV NS 0.9% 1,000 ML IV PRN (11:35)
--- NOTE | 2019-02-13 11:39 | NUR ---
RN NOTE PER CM, PATIENT IS GOING BACK TO [facility]. PLATE PRINTER TIME AT 1600
--- NOTE | 2019-02-13 12:30 | NUR ---
RN NOTE PATIENT WAS NOTED WITH RIGHT LOWER ARM REDNESS AND SWELLING. MD MADE AWARE AND NEW ORDER FOR US. ORDERED STAT, PENDING RESULTS
[2019-02-13 14:07] LABS: PTH, INTACT 44 pg/mL (15-65)
--- NOTE | 2019-02-13 14:23 | NUR ---
RN NOTE TALKED TO THE SON, MU. AWARE THAT PATIENT IS GOING BACK TO [facility] VIA AMBULANCE
--- NOTE | 2019-02-13 15:26 | NUR ---
RN NOTE REPORT GIVEN TO PHILIPPE BAZZI FROM [facility]. AMBULANCE AT BEDSIDE, WAITING FOR US RIGHT LOWER ARM RESULTS. CALLING RADIOLOGY AT THIS TIME FOR FASTER RESULTS Addendum: 02/13/19 at 1532 by MABLE LOVING RN PER RADIOLOGIST, US SHOWS NO EDEMA AND NO FOCAL ABSCESS NOTED. MADE AWARE, WAITING FOR OK TO DC PATIENT
--- NOTE | 2019-02-13 15:56 | NUR ---
TUBE CUTTER NOTES: PATIENT IN BED, AWAKE, AND VERBALLY RESPONSIVE. NO SOB. NO C/O PAIN. PATIENT IN STABLE CONDITION. PATIENT IS BEING DISCHARGED TO [facility]. 22G IV SITE ON RIGHT FOREARM REMOVED. PER DR. CHAVEZ, KEEP THE LUNDBERG CATHETER IN PLACE. PATIENT WAS PICKED UP BY AMBULANCE AND LEFT VIA GURNEY. DC PAPERWORK AND INSTRUCTIONS PROVIDED TO EMT. ALL PERSONAL BELONGINGS TAKEN WITH THE PATIENT.
== END 2019-02-13 16:00 | DRG 193 ==
LOC: ER 14:50 → TELE1 16:22 → MEDSG1 02-11 02:51
PROVIDERS: ADMIT Internal Medicine; ATTEND Student in an Organized Health Care Education/Training Program
DX: J15.9 Unspecified bacterial pneumonia (principal); N17.0 Acute kidney failure with tubular necrosis; G93.41 Metabolic encephalopathy; I24.9 Acute ischemic heart disease, unspecified; N18.4 Chronic kidney disease, stage 4 (severe); I12.9 Hypertensive chronic kidney disease with stage 1 through stage 4 chronic kidney disease, or unspecified chronic kidney disease; F41.9 Anxiety disorder, unspecified; D63.1 Anemia in chronic kidney disease; Z90.710 Acquired absence of both cervix and uterus; G30.9 Alzheimer's disease, unspecified; F02.80 Dementia in other diseases classified elsewhere, unspecified severity, without behavioral disturbance, psychotic disturbance, mood disturbance, and anxiety; E78.5 Hyperlipidemia, unspecified; F32.9 Major depressive disorder, single episode, unspecified; R74.8 Abnormal levels of other serum enzymes; M47.812 Spondylosis without myelopathy or radiculopathy, cervical region
CPT/HCPCS: 36415; 71045-TC; 76700-TC; 76882; 80048-TC; 80053-TC; 80061-TC; 80076-TC; 81000-TC; 82550-TC; 82570-TC; 82962-TC; 83605-TC; 83735-TC; 83970; 84100-TC; 84155; 84155-TC; 84165; 84300-TC; 84484-TC; 85025-TC; 85730-TC; 87040-TC; 87081-TC; 87086-TC; 93307-TC; 97116-TC; 97530-TC; A4216; G0378; J0696; J1956; J2405; J3475; J7030; J7050

== ENCOUNTER 2019-07-17 12:03 | Emergency (ER) | payer MEDICARE, BC ==
[~2019-07-17] VITALS: Ht 162.6 cm; Wt 56.7 kg
[~2019-07-17 12:03] MED LIST changes: -ACET325T53 PO; +BUSP5TAB3 PO; -CALC-903 PO; -CHOL100040 PO; +CLON0.1T PO; +CRAN450C PO; +DIVA500T2 PO; +DOCU-141 PO; -ESCI10TA PO; -GABA-532 PO; -HYDR-4384 PO; -HYDR453.3 TP; +LEVO750T46 PO; -LIDO28.310 TP; -LORA0.5T PO; +MAG-55 PO; +MAGN400O6 PO; -MELA3TAB PO; -MOME45CR20 TP; +NA P133E RC; +SERT50TA PO; -[UNRECOGNIZED DRUG - OTHER]
--- NOTE | 2019-07-17 12:03 | NUR ---
JAVIER BRADFORD FROM [facility],LACERATION TO LEFT PERIORBITAL AREA, GLF WHEN SHE GOT OUT OF BED THIS MORNING, TO ER BED 11, HOOKED TO BP CUFF AND POX, CHANGED TO HOSP GOWN, WARM BLANKET PROVIDED. PATIENT AOx2 , BREATHING EVEN AND UNLABORED. AWAITING MD JARA.
--- NOTE | 2019-07-17 12:34 | NUR ---
DR SCHNEIDER AT BEDSIDE
[2019-07-17] MEDS ORDERED: MEMA10TA PO (12:36)
[2019-07-17] MEDS ORDERED: LIDOCAINE HCL/MPF 1% 30 ML VIAL IJ ONE (12:38)
--- NOTE | 2019-07-17 12:40 | NUR ---
DR SCHNEIDER AT BEDSIDE FOR SUTURING
[2019-07-17] MEDS ORDERED: LIDOCAINE HCL/PF 1% 30 ML VIAL TP ONE (13:00)
[2019-07-17] MEDS ORDERED: TDAP [DIPH/PERTUSSIS/TET] 0.5 ML VIAL IM ONE ×2 (13:00→13:02)
--- NOTE | 2019-07-17 13:00 | NUR ---
WHEELED OUT VIA [facility] FOR CT SCAN.
--- NOTE | 2019-07-17 14:20 | NUR ---
JORGE GAMINO TO [facility] ETA [phone], TRIP#[id number]
--- NOTE | 2019-07-17 15:27 | NUR ---
REPORT GIVEN TO LORA GRINDER DRESSER OF [facility]
--- NOTE | 2019-07-17 15:29 | NUR ---
PATIENT PICKED UP BY [facility] UNIT 702 IN STABLE CONDITION. DISCHARGE PAPER HANDED TO EMT TO BE GIVEN AT THE FACILITY.
[2019-07-17 15:34] VITALS: BP 126/83
== END 2019-07-17 15:35 ==
LOC: ER 12:05
DX: S01.81XA Laceration without foreign body of other part of head, initial encounter (principal); R41.82 Altered mental status, unspecified; G30.9 Alzheimer's disease, unspecified; F02.80 Dementia in other diseases classified elsewhere, unspecified severity, without behavioral disturbance, psychotic disturbance, mood disturbance, and anxiety; I10 Essential (primary) hypertension; Z90.710 Acquired absence of both cervix and uterus; Z98.890 Other specified postprocedural states; Z88.2 Allergy status to sulfonamides; Z79.899 Other long term (current) drug therapy; W06.XXXA Fall from bed, initial encounter; Y93.89 Activity, other specified; Y92.89 Other specified places as the place of occurrence of the external cause; Y99.8 Other external cause status
CPT/HCPCS: 12011; 70450; 90471; 90715; 99285; A6403; J3490 ×2

== ENCOUNTER 2019-11-13 21:41 | Emergency (ER) | payer MEDICARE, BC, OTHER ==
[~2019-11-13] VITALS: Ht 162.6 cm; Wt 56.7 kg
[~2019-11-13 21:41] MED LIST changes: -IBUP-1953 PO; -LACT-179 PO; -LEVO750T46 PO; +MEMA10TA PO; -MEMA28CA PO
--- NOTE | 2019-11-13 21:48 | NUR ---
CHASITY FROM [facility] C/O GENERALIZED RASH, ESPECIALLY SCALP. PT TO BED 4, AAOX0, -SOB, PLACED ON MARTELL JACK, PENDING MD JARA
[2019-11-13 22:27] LABS: BASOPHILS % (AUTO) 0.4 % (0.0-2.0); EOSINOPHILS % (AUTO) 2.3 % (0.0-6.0); HEMATOCRIT 34 % (33-45); HEMOGLOBIN 11.2 g/dL (11.5-14.8); LYMPHOCYTES % (AUTO) 9.3 % (20.0-44.0); MEAN CORPUSCULAR HGB CONC 33 g/dl (31.0-36.0); MEAN CORPUSCULAR VOLUME 102 fL (82-100); MONOCYTES % (AUTO) 9.1 % (2.0-12.0); NEUTROPHILS # (AUTO) 8.5 /CMM (1.8-8.9); NEUTROPHILS % (AUTO) 78.9 % (43.0-81.0); PLATELET COUNT (AUTO) 205 /CMM (150-450); RED BLOOD CELL COUNT(AUTO) 3.32 MIL/uL (4.0-5.2); WHITE BLOOD COUNT (AUTO) 10.8 K/uL (4.3-11.0)
[2019-11-13 22:34] LABS: CALCIUM, SERUM 8.9 mg/dL (8.5-10.1); CARBON DIOXIDE 26 mmol/L (21-32); CHLORIDE 109 mmol/L (98-107); CREATININE 1.6 mg/dL (0.6-1.3); GLUCOSE 159 mg/dL (74-106); POTASSIUM 4.1 mmol/L (3.5-5.1); SODIUM SERUM 143 mmol/L (136-145); UREA NITROGEN, BLOOD 36 mg/dL (7-18)
--- NOTE | 2019-11-14 00:16 | NUR ---
[facility] CALLED FOR S TRANSPORT. ETA [phone]
[2019-11-14 01:00] VITALS: BP 142/60
--- NOTE | 2019-11-14 01:10 | NUR ---
REPORT GIVEN TO MAX
--- NOTE | 2019-11-14 01:50 | NUR ---
PT TRANSPORTED BACK TO SNF VIA PRIVATE AMBULANCE. PT LEFT IN STABLE CONDITION, -SOB,-CP, VSS. REPORT GIVEN TO EMT'S.
== END 2019-11-14 02:00 ==
LOC: ER 21:43
DX: R21 Rash and other nonspecific skin eruption (principal); G30.9 Alzheimer's disease, unspecified; F02.80 Dementia in other diseases classified elsewhere, unspecified severity, without behavioral disturbance, psychotic disturbance, mood disturbance, and anxiety; I12.9 Hypertensive chronic kidney disease with stage 1 through stage 4 chronic kidney disease, or unspecified chronic kidney disease; N18.9 Chronic kidney disease, unspecified; F39 Unspecified mood [affective] disorder; F32.9 Major depressive disorder, single episode, unspecified; E03.9 Hypothyroidism, unspecified; Z90.710 Acquired absence of both cervix and uterus; Z98.890 Other specified postprocedural states; Z88.2 Allergy status to sulfonamides; Z79.899 Other long term (current) drug therapy
CPT/HCPCS: 36415; 80048; 85025; 87081; 99285; A6403

== ENCOUNTER 2020-04-09 22:36 | Inpatient (IN) | payer MEDICARE, BC, OTHER ==
[~2020-04-09] VITALS: Ht 157.5 cm; Wt 61.2 kg
--- NOTE | 2020-04-09 20:00 | NUR ---
RN NOTES RECEIVED PATIENT IN BED, ALERT AND AWAKE, ROOM AIR, NOT IN APPARENT PAIN, BILATERAL MITTENS, NS AT 75 ML/HR, KEPT SAFE, WILL CONTINUE MONITOR.
--- NOTE | 2020-04-09 22:50 | NUR ---
CHASITY FROM [facility] FOR IDRIS HAND CELLULITS NOTED TODAY PER STAFF. PT AAOX1, VSS. RR EVEN & UNLABORED. DR. CALI @ BS FOR EVAL. PLACED ON HPLC CHEMIST, SR. WILL CONT TO MONITOR.
[2020-04-09 23:12] LABS: BASOPHILS % (AUTO) 0.1 % (0.0-2.0); EOSINOPHILS % (AUTO) 3.6 % (0.0-6.0); HEMATOCRIT 30 % (33-45); HEMOGLOBIN 9.8 g/dL (11.5-14.8); LYMPHOCYTES % (AUTO) 9.2 % (20.0-44.0); MEAN CORPUSCULAR HGB CONC 33 g/dl (31.0-36.0); MEAN CORPUSCULAR VOLUME 95 fL (82-100); MONOCYTES # (AUTO) 0.8 /CMM (0.1-1.30); MONOCYTES % (AUTO) 7.2 % (2.0-12.0); NEUTROPHILS # (AUTO) 8.4 /CMM (1.8-8.9); NEUTROPHILS % (AUTO) 79.9 % (43.0-81.0); PLATELET COUNT (AUTO) 198 /CMM (150-450); RED BLOOD CELL COUNT(AUTO) 3.16 MIL/uL (4.0-5.2); WHITE BLOOD COUNT (AUTO) 10.5 K/uL (4.3-11.0)
[2020-04-09 23:20] LABS: CALCIUM, SERUM 8.6 mg/dL (8.5-10.1); CARBON DIOXIDE 19 mmol/L (21-32); CHLORIDE 111 mmol/L (98-107); CREATININE 1.8 mg/dL (0.6-1.3); GLUCOSE 108 mg/dL (74-106); POTASSIUM 3.8 mmol/L (3.5-5.1); SODIUM SERUM 144 mmol/L (136-145); UREA NITROGEN, BLOOD 39 mg/dL (7-18)
[2020-04-09 23:26] LABS: ALANINE AMINOTRANSFERASE 10 U/L (12-78); ALBUMIN 2.6 g/dL (3.4-5.0); ALKALINE PHOSPHATASE 63 U/L (46-116); ASPARTATE AMINOTRANSFERASE 13 U/L (15-37); BILIRUBIN,TOTAL 0.1 mg/dL (0.2-1.0); TOTAL PROTEIN, SERUM 7.2 g/dL (6.4-8.2)
[2020-04-10] MEDS ORDERED: MAGNESIUM HYDROXIDE 30 ML UDC PO PRN
[2020-04-10] MEDS ORDERED: ACETAMINOPHEN 325 MG TABLET PO PRN
[2020-04-10] MEDS ORDERED: ONDANSETRON HCL/PF 4 MG/2 ML VIAL IVP PRN
[2020-04-10] MEDS ORDERED: ZOLPIDEM TARTRATE 5 MG TABLET PO PRN
[2020-04-10] MEDS ORDERED: MAG HYDROX/AL HYDROX/SIMETH 30 ML UDC PO PRN
[2020-04-10] MEDS ORDERED: CLONIDINE HCL 0.1 MG TABLET PO PRN
[2020-04-10] MEDS ORDERED: Z GUARD REMEDY 2 OZ OINT TP PRN
[2020-04-10] MEDS ORDERED: HYDROCODONE/APAP 5/325MG TABLET PO PRN
--- NOTE | 2020-04-10 00:08 | NUR ---
IV LINE ESTABLISHED LFA 18 G
--- NOTE | 2020-04-10 00:08 | NUR ---
COVID SWAB SENT TO LAB
--- NOTE | 2020-04-10 00:34 | NUR ---
LAB CALLED FOR COVID NEGATIVE RESULTS
--- NOTE | 2020-04-10 00:41 | NUR ---
M/S 326-2
--- NOTE | 2020-04-10 00:56 | NUR ---
REPORT GIVEN TO JUDE LOZA FOR ILDEFONSO
[2020-04-10] MEDS ORDERED: MUPIROCIN OINT 2% 22 GM TUBE TP SCH (01:00)
--- NOTE | 2020-04-10 02:00 | NUR ---
ADMITTED PATIENT FROM [facility], DUE TO CELLULITIS OF BILATERAL HAND, HX OF DEMENTIA AND ALZHEIMER, TALKING TO SELF, CONFUSED, UNCOOPERATIVE AT TIMES, BILATERAL HAND CELLULITIS WITH REDNESS, SCABS, YELLOWISH AND CRUST, PUT ON CONTACT ISOLATION FOR SUSPECTED SHINGLES, PASSED BED SIDE SWALLOW EVAL. PER FACILITY, PATIENT IS ON MECHANICAL SOFT DIET, CRUSHED PILLS, THIN LIQUID.
[2020-04-10 02:30] VITALS: BP 120/71
[2020-04-10] MEDS: ENOXAPARIN SODIUM 30 MG/0.3 ML DISP.SYRIN SQ SCH ×2 (03:42→21:42)
[2020-04-10] MEDS: IV NS 0.9% 1,000 ML IV PRN (03:43)
--- NOTE | 2020-04-10 06:26 | NUR ---
RN NOTES PATIENT ASLEEP, AROUSEABLE BY VOICE AND TOUCH, STARTED PICKING IV LINE, INITIATED BILATERAL MITTEN RESTRAINTS, FOR WOUND CONSULT
[2020-04-10 06:34] LABS: BASOPHILS % (AUTO) 0.2 % (0.0-2.0); HEMATOCRIT 28 % (33-45); HEMOGLOBIN 9.4 g/dL (11.5-14.8); LYMPHOCYTES # (AUTO) 1.1 /CMM (0.8-4.8); LYMPHOCYTES % (AUTO) 11.2 % (20.0-44.0); MEAN CORPUSCULAR HGB CONC 33 g/dl (31.0-36.0); MEAN CORPUSCULAR VOLUME 93 fL (82-100); MONOCYTES # (AUTO) 0.8 /CMM (0.1-1.30); MONOCYTES % (AUTO) 8.4 % (2.0-12.0); NEUTROPHILS # (AUTO) 7.6 /CMM (1.8-8.9); NEUTROPHILS % (AUTO) 76.2 % (43.0-81.0); PLATELET COUNT (AUTO) 189 /CMM (150-450); RED BLOOD CELL COUNT(AUTO) 3.03 MIL/uL (4.0-5.2)
[2020-04-10 06:57] LABS: ALANINE AMINOTRANSFERASE 13 U/L (12-78); ALBUMIN 2.4 g/dL (3.4-5.0); ALKALINE PHOSPHATASE 64 U/L (46-116); ASPARTATE AMINOTRANSFERASE 15 U/L (15-37); BILIRUBIN,TOTAL 0.2 mg/dL (0.2-1.0); CALCIUM, SERUM 8.6 mg/dL (8.5-10.1); CARBON DIOXIDE 20 mmol/L (21-32); CHLORIDE 112 mmol/L (98-107); CREATININE 1.7 mg/dL (0.6-1.3); GLUCOSE 99 mg/dL (74-106); MAGNESIUM 2.2 mg/dL (1.8-2.4); PHOSPHORUS 2.8 mg/dL (2.5-4.9); POTASSIUM 3.8 mmol/L (3.5-5.1); SODIUM SERUM 143 mmol/L (136-145); TOTAL PROTEIN, SERUM 6.8 g/dL (6.4-8.2); UREA NITROGEN, BLOOD 33 mg/dL (7-18)
--- NOTE | 2020-04-10 07:38 | NUR ---
RN MS OPENING NOTES RECEIVED PATIENT RESTING IN BED, A/OX1; PATIENT WITH DEMENTIA AND CONFUSED. ON RA WITH NO S/S OF ACUTE RESPIRATORY DISTRESS OR SOB NOTED; BREATHING EVEN AND UNLABORED. PT WITH ORDERS FOR SOFT RESTRAINTS MITTENS ON. IV TO LT FA #18G PATENT AND INTACT WITH NO SIGNS OF REDNESS OR SWELLING NOTED; INFUSING NS @75 ML/HR. BED IS AT LOWEST POSITION AND LOCKED WITH SIDE RAILS UPX3 AND CALL LIGHT WITH IN REACH. WILL CONTINUE TO MONITOR PATIENT THROUGH OUT SHIFT.
[2020-04-10] MEDS: LEVOTHYROXINE SODIUM 75 MCG TABLET PO SCH (07:57)
[2020-04-10 08:00] VITALS: BP 118/71
[2020-04-10] MEDS: busPIRone 5 MG TABLET PO SCH ×2 (08:42→16:41)
[2020-04-10] MEDS: DOCUSATE SODIUM 100 MG CAPSULE PO SCH (08:42)
[2020-04-10] MEDS: MULTIVIT W/MINERALS 1 TAB TABLET PO SCH (08:42)
[2020-04-10] MEDS: MEMANTINE HCL 5 MG TABLET PO SCH ×2 (08:42→16:41)
[2020-04-10] MEDS: LISINOPRIL (10MG) 10 MG TABLET PO SCH (08:43)
[2020-04-10] MEDS: AMLODIPINE BESYLATE 10 MG TABLET PO SCH (08:43)
[2020-04-10] MEDS ORDERED: Medication Not On Formulary EA (Cranberry Fruit Concentrate (Cranberry) 450 MG) PO SCH (09:00)
[2020-04-10] MEDS ORDERED: MELA3TAB41 PO (09:25)
[2020-04-10] MEDS ORDERED: LORA-588 PO (09:25)
[2020-04-10] MEDS ORDERED: MEGE40TA5 PO (09:25)
[2020-04-10] MEDS ORDERED: NA P133E RC (09:25)
[2020-04-10 16:00] VITALS: BP 138/65
[2020-04-10] MEDS: SERTRALINE HCL 50 MG TABLET PO SCH (17:14)
--- NOTE | 2020-04-10 18:23 | NUR ---
RN MS CLOSING NOTES PATIENT RESTING IN BED, A/OX1, PATIENT CONFUSED AND MUMBLING. PATIENT IS ON RA WITH NO S/S OF ACUTE RESPIRATORY DISTRESS OR SOB NOTED; BREATHING EVEN AND UNLABORED. PT WITH ORDERS FOR SOFT RESTRAINTS; MITTENS ON @0447. IV TO LT FA #18G PATENT AND INTACT WITH NO SIGNS INFILTRATION NOTED, IV INFUSING NS @75 ML/HR. BED IS AT LOWEST POSITION AND LOCKED WITH SIDE RAILS UPX3 AND CALL LIGHT WITH IN REACH. WILL ENDORSE TO ONCOMING SHIFT
[2020-04-10 20:00] VITALS: BP 138/59
[2020-04-10] MEDS: DONEPEZIL 5 MG TABLET PO SCH (21:41)
[2020-04-10] MEDS: DIVALPROEX SODIUM 125 MG CAP.SPRINK PO SCH (21:41)
[2020-04-10 22:00] VITALS: BP 138/59
[2020-04-10] MEDS ORDERED: DIVALPROEX SODIUM 250 MG TABLET.DR PO SCH (22:00)
--- NOTE | 2020-04-11 06:38 | NUR ---
RN NOTES, ALERT AND AWAKE, ROOM AIR, CONFUSED, NOT IN APPARENT DISTRESS, BILATERAL HAND WOUND, WITH DRESSING, UNCOOPERATIVE WITH CARE, MITTEN RESTRAINTS, VOIDING VIA DIAPER, PENDING WOUND CULTURE AND WOUND CARE CONSULT, BACTROBAN APPLIED TO HANDS, CONTINUE IVF
[2020-04-11] MEDS: IV NS 0.9% 1,000 ML IV PRN ×2 (06:54→21:32)
--- NOTE | 2020-04-11 07:41 | NUR ---
RN MS OPENING NOTES RECEIVED PATIENT RESTING IN BED, A/OX1 AND CONFUSED. PATIENT IS ON RA WITH NO S/S OF ACUTE RESPIRATORY DISTRESS OR SOB NOTED; BREATHING EVEN AND UNLABORED. PT WITH ORDERS FOR SOFT RESTRAINTS MITTENS ON TO RT HAND. LT HAND WITH DRESSING AND NO MITTEN ON. IV TO LT FA #18G PATENT AND INTACT WITH NO SIGNS OF REDNESS OR SWELLING NOTED; INFUSING NS @75 ML/HR. BED IS AT LOWEST POSITION AND LOCKED WITH SIDE RAILS UPX3 AND CALL LIGHT WITH IN REACH. WILL CONTINUE TO MONITOR PATIENT THROUGH OUT SHIFT.
[2020-04-11] MEDS: LEVOTHYROXINE SODIUM 75 MCG TABLET PO SCH (07:47)
[2020-04-11 08:00] VITALS: BP 127/62
[2020-04-11] MEDS: DOCUSATE SODIUM 100 MG CAPSULE PO SCH (09:18)
[2020-04-11] MEDS: busPIRone 5 MG TABLET PO SCH ×2 (09:19→16:22)
[2020-04-11] MEDS: AMLODIPINE BESYLATE 10 MG TABLET PO SCH (09:19)
[2020-04-11] MEDS: MEMANTINE HCL 5 MG TABLET PO SCH ×2 (09:19→16:22)
[2020-04-11] MEDS: LISINOPRIL (10MG) 10 MG TABLET PO SCH (09:19)
[2020-04-11] MEDS: MULTIVIT W/MINERALS 1 TAB TABLET PO SCH (09:19)
[2020-04-11 09:32] LABS: BASOPHILS % (AUTO) 0.2 % (0.0-2.0); EOSINOPHILS % (AUTO) 3.2 % (0.0-6.0); HEMATOCRIT 29 % (33-45); HEMOGLOBIN 9.5 g/dL (11.5-14.8); LYMPHOCYTES # (AUTO) 0.9 /CMM (0.8-4.8); LYMPHOCYTES % (AUTO) 10.9 % (20.0-44.0); MEAN CORPUSCULAR HGB CONC 33 g/dl (31.0-36.0); MEAN CORPUSCULAR VOLUME 94 fL (82-100); MONOCYTES # (AUTO) 0.7 /CMM (0.1-1.30); MONOCYTES % (AUTO) 7.6 % (2.0-12.0); NEUTROPHILS # (AUTO) 6.6 /CMM (1.8-8.9); NEUTROPHILS % (AUTO) 78.1 % (43.0-81.0); PLATELET COUNT (AUTO) 195 /CMM (150-450); RED BLOOD CELL COUNT(AUTO) 3.08 MIL/uL (4.0-5.2); WHITE BLOOD COUNT (AUTO) 8.5 K/uL (4.3-11.0)
[2020-04-11 10:08] LABS: CALCIUM, SERUM 8.4 mg/dL (8.5-10.1); CARBON DIOXIDE 20 mmol/L (21-32); CHLORIDE 114 mmol/L (98-107); CREATININE 1.4 mg/dL (0.6-1.3); GLUCOSE 92 mg/dL (74-106); POTASSIUM 3.7 mmol/L (3.5-5.1); SODIUM SERUM 144 mmol/L (136-145); UREA NITROGEN, BLOOD 25 mg/dL (7-18)
[2020-04-11 16:00] VITALS: BP 126/64
[2020-04-11] MEDS: SERTRALINE HCL 50 MG TABLET PO SCH (17:33)
--- NOTE | 2020-04-11 18:41 | NUR ---
RN MS CLOSING NOTES PATIENT RESTING IN BED, A/OX1, PATIENT CONFUSED AND MUMBLING. PATIENT IS ON RA WITH NO S/S OF ACUTE RESPIRATORY DISTRESS OR SOB NOTED; PATIENT BREATHING EVEN AND UNLABORED. PT WITH ORDERS FOR SOFT RESTRAINTS; MITTENS ON, ORDER EXPIRES @0228. IV TO LT FA #18G PATENT AND INTACT WITH NO SIGNS INFILTRATION NOTED, IV INFUSING NS @75 ML/HR. PT WITH DRESSGING TO LT HAND. PT WITH BILATERAL HAND RASH/WOUNDS, BILATERAL HANDS CLEANED WITH NS AND DRIED, APPLIED BACTOBAN AND PLACED GAUZE WRAP. PT AWAITING WOUND CONSULT. BED IS AT LOWEST POSITION AND LOCKED WITH SIDE RAILS UPX3 AND CALL LIGHT WITH IN REACH. WILL ENDORSE TO ONCOMING SHIFT
--- NOTE | 2020-04-11 22:00 | NUR ---
WOUND PICTURES NOT TAKEN; PICTURES TAKEN 03/10/20 PRESENT ON CHART.
[2020-04-11] MEDS: DONEPEZIL 5 MG TABLET PO SCH (22:16)
[2020-04-11] MEDS: DIVALPROEX SODIUM 125 MG CAP.SPRINK PO SCH (22:16)
[2020-04-11] MEDS: ENOXAPARIN SODIUM 30 MG/0.3 ML DISP.SYRIN SQ SCH (22:17)
--- NOTE | 2020-04-11 23:02 | NUR ---
BERNARD DOBBINS CALLED AND UPDATED ON PATIENT CONDITION.
--- NOTE | 2020-04-12 03:33 | NUR ---
URINE SAMPLE NEEDED; INCONTINENT ; NEW ORDER FOR STRAIGHT CATH. urine sample ordered this afternoon pt incontinent. informed screen machine operator karon. new order for ivana recieved to collect the sample.
--- NOTE | 2020-04-12 06:00 | NUR ---
PATIENT STRAIGTH CATHED AND 120 ML URINE SAMPLE COLLECTED AND PLACED IN LAB DROP OFF FOR COLLECTION.
[2020-04-12 07:09] LABS: BASOPHILS % (AUTO) 0.2 % (0.0-2.0); EOSINOPHILS % (AUTO) 1.3 % (0.0-6.0); HEMATOCRIT 29 % (33-45); HEMOGLOBIN 9.5 g/dL (11.5-14.8); LYMPHOCYTES # (AUTO) 0.7 /CMM (0.8-4.8); LYMPHOCYTES % (AUTO) 7.1 % (20.0-44.0); MEAN CORPUSCULAR HGB CONC 33 g/dl (31.0-36.0); MEAN CORPUSCULAR VOLUME 93 fL (82-100); MONOCYTES # (AUTO) 0.6 /CMM (0.1-1.30); MONOCYTES % (AUTO) 5.8 % (2.0-12.0); NEUTROPHILS # (AUTO) 8.5 /CMM (1.8-8.9); NEUTROPHILS % (AUTO) 85.6 % (43.0-81.0); PLATELET COUNT (AUTO) 218 /CMM (150-450); RED BLOOD CELL COUNT(AUTO) 3.08 MIL/uL (4.0-5.2)
[2020-04-12 07:25] LABS: ALANINE AMINOTRANSFERASE 13 U/L (12-78); ALBUMIN 2.3 g/dL (3.4-5.0); ALKALINE PHOSPHATASE 72 U/L (46-116); ASPARTATE AMINOTRANSFERASE 11 U/L (15-37); BILIRUBIN,TOTAL 0.3 mg/dL (0.2-1.0); CALCIUM, SERUM 8.4 mg/dL (8.5-10.1); CARBON DIOXIDE 18 mmol/L (21-32); CHLORIDE 111 mmol/L (98-107); CREATININE 1.4 mg/dL (0.6-1.3); GLUCOSE 106 mg/dL (74-106); MAGNESIUM 1.9 mg/dL (1.8-2.4); PHOSPHORUS 2.4 mg/dL (2.5-4.9); POTASSIUM 3.8 mmol/L (3.5-5.1); SODIUM SERUM 143 mmol/L (136-145); TOTAL PROTEIN, SERUM 6.9 g/dL (6.4-8.2); UREA NITROGEN, BLOOD 18 mg/dL (7-18)
--- NOTE | 2020-04-12 07:51 | NUR ---
MS PHILIPPE OPEN NOTES PATIENT CURRENTLY IN BED SLEEPING WITH NO SIGNS OF DISTRESS IN ROOM AIR. NO COMPLAIN OF PAIN AT THIS MOMENT. CONTACT ISOLATION. CURRENTLY ON SOFT MITTENS RESTRAIN OF HER LEFT HAND ONLY WITH GOOD PULSE AND GOOD CIRCULATION. IV L FA# 18G RUNNING NS AT 75 ML/HR . SAFETY MEASURES ARE APPLIED. BED IS IN LOWEST LOCKED POSITION WITH SIDE RAILS UP X 2 FOR SAFETY. CALL LIGHT IS WITHIN REACH. WILL CONTINUE TO MONITOR.
[2020-04-12 08:00] VITALS: BP 158/89
[2020-04-12] MEDS: DOCUSATE SODIUM 100 MG CAPSULE PO SCH (08:33)
[2020-04-12] MEDS: LISINOPRIL (10MG) 10 MG TABLET PO SCH (08:33)
[2020-04-12] MEDS: AMLODIPINE BESYLATE 10 MG TABLET PO SCH (08:34)
[2020-04-12] MEDS: MEMANTINE HCL 5 MG TABLET PO SCH ×2 (08:34→18:03)
[2020-04-12] MEDS: MULTIVIT W/MINERALS 1 TAB TABLET PO SCH (08:34)
[2020-04-12] MEDS: busPIRone 5 MG TABLET PO SCH ×2 (08:34→18:03)
[2020-04-12] MEDS: LEVOTHYROXINE SODIUM 75 MCG TABLET PO SCH (08:36)
[2020-04-12] MEDS: POTASSIUM PHOSPHATE MM 7.5 MMOL in IV NS 0.9% 100 ML IV SCH ×2 (10:06→14:09)
--- NOTE | 2020-04-12 10:29 | NUR ---
WOUND CARE CONSULT: PT PRESENTS WITH DRAINING LESIONS TO BILATERAL HANDS, MORE SEVERE ON LEFT HAND WELL LESIONS TO LEFT EAR AND ONE TO ABDOMEN ABOVE UMBILICUS, ALL PRESENT ON ADMISSION. RECOMMEND SURGICAL CONSULT. DR CLARKE NOTIFIED OF CONSULT REQUEST. RECOMMENDATIONS MADE FOR SKIN PROTECTION. DISCUSSED WITH NURSING STAFF. IN AGREEMENT WITH PLAN OF CARE. Addendum: 04/12/20 at 1031 by DEVI VILLAVICENCIO WNDNU PT NOTED TO BE INCONTINENT AND HAS CONTRACTED LOWER EXTREMITIES. Addendum: 04/12/20 at 1045 by DEVI VILLAVICENCIO WNDNU DISCUSSED CULTURE RESULTS WITH MARCY PAEZ AND DR FAIR.
[2020-04-12] MEDS ORDERED: VANCOMYCIN 1 GM in IV D5W 250ml IV SCH (11:00)
[2020-04-12] MEDS: MUPIROCIN OINT 2% 22 GM TUBE TP SCH ×2 (14:10→22:01)
[2020-04-12] MEDS: MUPIROCIN OINT 2% 22 GM TUBE NS SCH ×2 (14:10→22:01)
[2020-04-12 16:00] VITALS: BP 142/84
[2020-04-12] MEDS: SERTRALINE HCL 50 MG TABLET PO SCH (18:03)
[2020-04-12 18:08] LABS: BILIRUBIN,URINE NEGATIVE (NEGATIVE); BLOOD, URINE LARGE Ery/uL (NEGATIVE); COLOR,URINE YELLOW (YELLOW); LEUKOCYTE ESTERASE ,URINE NEGATIVE (NEGATIVE); NITRITE, URINE NEGATIVE (NEGATIVE); PH,URINE 5.5 (5.0-8.0); PROTEIN,URINE TRACE mg/dl (NEGATIVE); UGLUCOSE NEGATIVE (NEGATIVE); UROBILINOGEN,URINE 0.2 EU/dL (0.2)
[2020-04-12 18:17] LABS: CREATININE, URINE 70.4 MG/DL (30.0-125.0); URINE TOTAL PROTEIN 49.1 mg/dL (0-11.9)
[2020-04-12 18:27] LABS: BACTERIA,URINE RARE /HPF (None Seen); SQUAMOUS EPITHELIAL CELL,UR 0-2 /HPF (None Seen); WBC,URINE 0-2 /HPF (0-3)
[2020-04-12 18:42] LABS: EOSINOPHIL,URINE None Seen
[2020-04-12] MEDS: ENSURE ENLIVE 237 ML LIQUID (VANILLA) PO SCH (18:49)
[2020-04-12] MEDS ORDERED: SILVER SULFADIAZINE 50 GM JAR TP PRN (19:30)
[2020-04-12] MEDS: IV NS 0.9% 1,000 ML IV PRN (19:33)
--- NOTE | 2020-04-12 19:36 | NUR ---
MS RN CLOSED NOTES PATIENT CURRENTLY IN BED SLEEPING WITH NO SIGNS OF DISTRESS IN ROOM AIR. SIGNS OF PAIN AT THIS MOMENT. CONTACT ISOLATION. CURRENTLY ON SOFT MITTENS RESTRAIN OF HER LEFT HAND ONLY WITH GOOD PULSE AND GOOD CIRCULATION. IV L FA# 18G RUNNING NS AT 75 ML/HR. ALL NEEDS, CARE, TREATMENT AND MEDICATIONS ADMINISTERED ANTICIPATED PER ORDER. SAFETY MEASURES ARE APPLIED. BED IS IN LOWEST LOCKED POSITION WITH SIDE RAILS UP X 2 FOR SAFETY. CALL LIGHT IS WITHIN REACH. WILL ENDORSE TO THE EQUITIES TRADER NURSE.
[2020-04-12 20:00] VITALS: BP 135/56
[2020-04-12] MEDS: DONEPEZIL 5 MG TABLET PO SCH (22:01)
[2020-04-12] MEDS: DIVALPROEX SODIUM 125 MG CAP.SPRINK PO SCH (22:02)
[2020-04-12] MEDS: ENOXAPARIN SODIUM 30 MG/0.3 ML DISP.SYRIN SQ SCH (22:03)
[2020-04-13 06:15] LABS: BASOPHILS % (AUTO) 0.3 % (0.0-2.0); EOSINOPHILS % (AUTO) 0.4 % (0.0-6.0); HEMATOCRIT 29 % (33-45); HEMOGLOBIN 9.5 g/dL (11.5-14.8); LYMPHOCYTES # (AUTO) 0.9 /CMM (0.8-4.8); MEAN CORPUSCULAR HGB CONC 33 g/dl (31.0-36.0); MEAN CORPUSCULAR VOLUME 93 fL (82-100); MONOCYTES # (AUTO) 0.4 /CMM (0.1-1.30); MONOCYTES % (AUTO) 6.7 % (2.0-12.0); NEUTROPHILS # (AUTO) 4.8 /CMM (1.8-8.9); NEUTROPHILS % (AUTO) 78.6 % (43.0-81.0); PLATELET COUNT (AUTO) 200 /CMM (150-450); RED BLOOD CELL COUNT(AUTO) 3.09 MIL/uL (4.0-5.2); WHITE BLOOD COUNT (AUTO) 6.2 K/uL (4.3-11.0)
[2020-04-13 06:27] LABS: CARBON DIOXIDE 20 mmol/L (21-32); CHLORIDE 110 mmol/L (98-107); CREATININE 1.4 mg/dL (0.6-1.3); GLUCOSE 105 mg/dL (74-106); MAGNESIUM 1.9 mg/dL (1.8-2.4); POTASSIUM 3.7 mmol/L (3.5-5.1); SODIUM SERUM 141 mmol/L (136-145); UREA NITROGEN, BLOOD 15 mg/dL (7-18)
[2020-04-13 06:33] LABS: IRON, SERUM 11 ug/dl (50-175); TOTAL IRON BINDING CAPACITY 119 ug/dl (250-450)
[2020-04-13 06:41] LABS: FERRITIN 326 ng/mL (8-388)
--- NOTE | 2020-04-13 07:51 | NUR ---
MS RN OPENING NOTES BEDSIDE ENDORSEMENT DONE. PATIENT IS IN BED SLEEPING, ABLE TO OPEN EYES, CONFUSED AND MUMBLES WORDS. BREATHING EVEN AND UNLABORED, TOLERATING ROOM AIR. CONTACT PRECAUTIONS OBSERVED. IV LINE ON RFA#20 INTACT AND PATENT. DRESSING NOTED ON BILATERAL HANDS/PALMS, C/D/I. SAFETY MEASURES IN PLACE: BED IS LOCKED AND LOWEST POSITION, SIDE RAILS UP X2, CALL LIGHT IS WITHIN REACH. WILL CONTINUE TO MONITOR.
[2020-04-13 08:00] VITALS: BP 148/61
[2020-04-13] MEDS: MEMANTINE HCL 5 MG TABLET PO SCH ×2 (08:35→17:08)
[2020-04-13] MEDS: MULTIVIT W/MINERALS 1 TAB TABLET PO SCH (08:36)
[2020-04-13] MEDS: DOCUSATE SODIUM 100 MG CAPSULE PO SCH (08:36)
[2020-04-13] MEDS: busPIRone 5 MG TABLET PO SCH ×2 (08:36→17:08)
[2020-04-13] MEDS: LISINOPRIL (10MG) 10 MG TABLET PO SCH (08:36)
[2020-04-13] MEDS: LEVOTHYROXINE SODIUM 75 MCG TABLET PO SCH (08:36)
[2020-04-13] MEDS: MUPIROCIN OINT 2% 22 GM TUBE NS SCH ×2 (08:37→20:43)
[2020-04-13] MEDS: AMLODIPINE BESYLATE 10 MG TABLET PO SCH (08:37)
[2020-04-13] MEDS: ENSURE ENLIVE 237 ML LIQUID (VANILLA) PO SCH ×2 (08:40→17:20)
[2020-04-13] MEDS: MUPIROCIN OINT 2% 22 GM TUBE TP SCH ×2 (08:43→20:43)
[2020-04-13] MEDS: VANCOMYCIN 0.75 GM in IV D5W 250 ML IV SCH (12:25)
[2020-04-13 16:00] VITALS: BP 122/59
[2020-04-13] MEDS: IV NS 0.9% 1,000 ML IV PRN (17:20)
[2020-04-13] MEDS: SERTRALINE HCL 50 MG TABLET PO SCH (17:21)
--- NOTE | 2020-04-13 18:55 | NUR ---
MS RN CLOSING NOTES PATIENT IS IN BED SLEEPING, ABLE TO OPEN EYES, CONFUSED BUT ABLE TO RESPOND AND VERBALIZE WORDS. BREATHING EVEN AND UNLABORED, TOLERATING ROOM AIR. IV LINE ON RFA#20 INTACT AND PATENT, IVF OF NS RUNNING AT 75CC/HR, INFUSING WELL. DRESSING C/D/I ON BILATERAL HANDS/PALMS. KEPT CLEAN AND COMFORTABLE. SAFETY MEASURES MAINTAINED: BED IS LOCKED AND LOWEST POSITION, SIDE RAILS UP X2, CALL LIGHT IS WITHIN REACH. WILL ENDORSE TO TECHNOLOGY SALES CONSULTANT RN FOR ILDEFONSO.
--- NOTE | 2020-04-13 19:40 | NUR ---
MS RN OPENING NOTES RECEIVED PATIENT IN BED, ALERT AND ORIENTED X 1. VERBALLY RESPONSIVE AND ABLE TO FOLLOW SIMPLE DIRECTIONS. BREATHING REGULAR AND UNLABORED ON ROOM AIR. RIGHT FOREARM G20 IV LINE INTACT AND PATENT, INFUSING WELL WITH NO BLEEDING OR S/S OF INFILTRATION NOTED. NO S/S OF PAIN/DISCOMFORT SEEN AT THIS TIME. BED LOW AND LOCKED ON SEMI FOWLERS POSITION. CALL LIGHT IN REACH. ON ASPIRATION PRECAUTIONS. WILL CONTINUE TO MONITOR.
[2020-04-13 20:00] VITALS: BP 143/66
[2020-04-13] MEDS: ENOXAPARIN SODIUM 30 MG/0.3 ML DISP.SYRIN SQ SCH (21:09)
[2020-04-13] MEDS: DIVALPROEX SODIUM 125 MG CAP.SPRINK PO SCH (21:12)
[2020-04-13] MEDS: DONEPEZIL 5 MG TABLET PO SCH (21:12)
--- NOTE | 2020-04-14 06:55 | NUR ---
MS RN CLOSING NOTES PATIENT IN BED, ALERT AND ORIENTED X 1. AFEBRILE WITH NO S/S OF DISTRESS OBSERVED. RIGHT FOREARM G20 IV LINE PATENT AND INFUSING WELL. NO S/S OF PAIN/DISCOMFORT SEEN AT THIS TIME. BED LOW AND LOCKED ON SEMI FOWLERS POSITION. CALL LIGHT IN REACH. ON ASPIRATION PRECAUTIONS. WILL ENDORSE TO MORNING SHIFT FOR ILDEFONSO.
[2020-04-14 08:00] VITALS: BP 138/71
--- NOTE | 2020-04-14 08:00 | NUR ---
MS RN OPENING NOTES RECEIVED PATIENT IN BED, ALERT AND ORIENTED X 1. VERBALLY RESPONSIVE AND ABLE TO FOLLOW SIMPLE DIRECTIONS. BREATHING REGULAR AND UNLABORED ON ROOM AIR. RIGHT FOREARM G20 IV LINE INTACT AND PATENT, IVF AT 75 ML/HR INFUSING WELL WITH NO BLEEDING OR S/S OF INFILTRATION NOTED. NO S/S OF PAIN/DISCOMFORT SEEN AT THIS TIME. BED LOW AND LOCKED ON SEMI FOWLERS POSITION. CALL LIGHT IN REACH. ON ASPIRATION PRECAUTIONS. WILL CONTINUE TO MONITOR.
[2020-04-14] MEDS: MULTIVIT W/MINERALS 1 TAB TABLET PO SCH (09:50)
[2020-04-14] MEDS: AMLODIPINE BESYLATE 10 MG TABLET PO SCH (09:50)
[2020-04-14] MEDS: DOCUSATE SODIUM 100 MG CAPSULE PO SCH (09:50)
[2020-04-14] MEDS: LISINOPRIL (10MG) 10 MG TABLET PO SCH (09:50)
[2020-04-14] MEDS: LEVOTHYROXINE SODIUM 75 MCG TABLET PO SCH (09:51)
[2020-04-14] MEDS: MEMANTINE HCL 5 MG TABLET PO SCH ×2 (09:51→17:06)
[2020-04-14] MEDS: busPIRone 5 MG TABLET PO SCH ×2 (09:51→17:05)
[2020-04-14] MEDS: ENSURE ENLIVE 237 ML LIQUID (VANILLA) PO SCH ×2 (09:57→17:06)
[2020-04-14] MEDS: MUPIROCIN OINT 2% 22 GM TUBE NS SCH (09:57)
[2020-04-14] MEDS: MUPIROCIN OINT 2% 22 GM TUBE TP SCH (09:58)
[2020-04-14 11:16] LABS: CARBON DIOXIDE 21 mmol/L (21-32); CHLORIDE 108 mmol/L (98-107); CREATININE 1.5 mg/dL (0.6-1.3); GLUCOSE 172 mg/dL (74-106); POTASSIUM 3.5 mmol/L (3.5-5.1); SODIUM SERUM 138 mmol/L (136-145); UREA NITROGEN, BLOOD 20 mg/dL (7-18)
[2020-04-14] MEDS: VANCOMYCIN 0.75 GM in IV D5W 250 ML IV SCH (11:38)
--- NOTE | 2020-04-14 13:00 | NUR ---
PT REFUSED TO HAVE HER IDRIS HAND BLISTERS' PHOTO TO BE TAKEN INSPITE OF EXPLAINING ITS RISKS AND BENEFITS.
--- NOTE | 2020-04-14 15:00 | NUR ---
CALLED IN DISCHARGE REPORT TO PHILIPPE PAULINO MEAT COUNTER CLERK OF [facility]. LORA STATED THAT THEY REQUIRE THAT PT'S DIASTOLIC BP SHOULD BE 60 AND ABOVE.PT'S V/S WAS 116/50 HR 78 RR 16 T 97.9 O2 SAT 98%. PHILIPPE DIAZ OF [facility] REFUSED TO RECEIVE THE PT. NOTIFIED POLE PEELERZE MILLER,ELECTRONIC DEVELOPMENT TECHNICIAN, [employer] SUPERVISORRITA. WILL CALL [facility] FOR COMIC WRITER.POLE PEELERZE MILLER CALLED BACK AND STATED THAT THE PT WILL BE PICKED UP AT 2029.
[2020-04-14 16:00] VITALS: BP_SYST 114; BP_SYST 116; BP_DIAS 50; BP_DIAS 78
[2020-04-14] MEDS: SERTRALINE HCL 50 MG TABLET PO SCH (17:06)
--- NOTE | 2020-04-14 17:36 | NUR ---
[facility] DISPATCH PHONE NUMBER AND PT WILL BE PICKED UP AT 2030 PER RECONSIGNMENT CLERK,ZE.
--- NOTE | 2020-04-14 19:30 | NUR ---
PT WILL BE PICKED UP BY AMBULANCE AT 2029. WITH STABLE V/S.ENDORSED TO NIGHT NURSE CARE.
--- NOTE | 2020-04-14 21:37 | NUR ---
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 AMBULANCE HERE AT 2029, REPORT WAS GIVEN TO THE EMT, VITAL SIGNS PER AMBULANCE BP 122/65, HR 72. CALLED [facility], SPOKE TO SHAMIR, NURSING JACKSCREW MAN, INFORMED HER THAT THE PATIENT WAS READY FOR D/C AND GIVE UPDATE ABOUT THE PATIENT'S BP. PATIENT LEFT THE FLOOR AT 2044 IN STABLE CONDITION.
[2020-04-15] MEDS ORDERED: VANCOMYCIN 0.75 GM in IV D5W 250 ML IV SCH (05:00)
== END 2020-04-14 20:45 | DRG 602 ==
LOC: ER 22:38 → MED 04-10 01:16
PROVIDERS: ADMIT Nurse Practitioner Acute Care; ATTEND Nurse Practitioner Acute Care
DX: L03.114 Cellulitis of left upper limb (principal); G93.41 Metabolic encephalopathy; N17.0 Acute kidney failure with tubular necrosis; L03.113 Cellulitis of right upper limb; B95.62 Methicillin resistant Staphylococcus aureus infection as the cause of diseases classified elsewhere; B95.0 Streptococcus, group A, as the cause of diseases classified elsewhere; S30.0XXA Contusion of lower back and pelvis, initial encounter; X58.XXXA Exposure to other specified factors, initial encounter; Y92.129 Unspecified place in nursing home as the place of occurrence of the external cause; L89.810 Pressure ulcer of head, unstageable; R62.7 Adult failure to thrive; D63.8 Anemia in other chronic diseases classified elsewhere; E89.0 Postprocedural hypothyroidism; Z90.710 Acquired absence of both cervix and uterus; L30.1 Dyshidrosis [pompholyx]; Z79.890 Hormone replacement therapy; Z79.899 Other long term (current) drug therapy; G30.9 Alzheimer's disease, unspecified; F02.80 Dementia in other diseases classified elsewhere, unspecified severity, without behavioral disturbance, psychotic disturbance, mood disturbance, and anxiety; F32.9 Major depressive disorder, single episode, unspecified; I12.9 Hypertensive chronic kidney disease with stage 1 through stage 4 chronic kidney disease, or unspecified chronic kidney disease; N18.9 Chronic kidney disease, unspecified; E78.5 Hyperlipidemia, unspecified; Z20.828 Contact with and (suspected) exposure to other viral communicable diseases
CPT/HCPCS: 36415; 80048-TC; 80053-TC; 80202-TC; 81001; 82570-TC; 82728-TC; 83540-TC; 83605-TC; 83735-TC; 84100-TC; 84155-TC; 84300-TC; 85025-TC; 85652-TC; 86592; 87070-TC; 87081-TC; 97112-TC; 97530-TC; A6253; C9803; G0378; J1650; J3370; J3490; J7030; J7060

== ENCOUNTER 2020-04-23 22:24 | Inpatient (IN) | payer MEDICARE, BC, OTHER ==
[~2020-04-23] VITALS: Ht 170.2 cm; Wt 58.1 kg
[~2020-04-23 22:24] MED LIST changes: -CRAN450C PO; -DIVA500T2 PO; +LORA-588 PO; -MAGN400O6 PO; +MEGE40TA5 PO; +MELA3TAB41 PO
--- NOTE | 2020-04-23 22:33 | NUR ---
PT AAOX1. CHASITY FROM [facility] (BUN OF 42 AND CR OF 2.24) PT PLACED IN BED 4 ON CHEESE WEIGHER AND PULSE OX. VSS. NO ACUTE DISTRESS NOTED. AWAITING FOR MD TO EVAL AND PLACE ORDERS. WILL CONTINUE TO MONITOR.
--- NOTE | 2020-04-23 22:49 | NUR ---
BAR HOST AT BEDSIDE
--- NOTE | 2020-04-23 22:51 | NUR ---
COVID SWAB COLLECTED AND SENT TO THE LAB.
--- NOTE | 2020-04-23 22:51 | NUR ---
EKG AT BEDSIDE.
[2020-04-23 22:54] LABS: BASOPHILS # (AUTO) 0.1 /CMM (0.0-0.2); BASOPHILS % (AUTO) 0.8 % (0.0-2.0); EOSINOPHILS % (AUTO) 3.6 % (0.0-6.0); HEMATOCRIT 26 % (33-45); HEMOGLOBIN 8.3 g/dL (11.5-14.8); LYMPHOCYTES # (AUTO) 1.4 /CMM (0.8-4.8); LYMPHOCYTES % (AUTO) 17.5 % (20.0-44.0); MEAN CORPUSCULAR HGB CONC 32 g/dl (31.0-36.0); MEAN CORPUSCULAR VOLUME 93 fL (82-100); MONOCYTES # (AUTO) 0.7 /CMM (0.1-1.30); MONOCYTES % (AUTO) 8.5 % (2.0-12.0); NEUTROPHILS # (AUTO) 5.4 /CMM (1.8-8.9); NEUTROPHILS % (AUTO) 69.6 % (43.0-81.0); PLATELET COUNT (AUTO) 315 /CMM (150-450); RED BLOOD CELL COUNT(AUTO) 2.76 MIL/uL (4.0-5.2); WHITE BLOOD COUNT (AUTO) 7.8 K/uL (4.3-11.0)
--- NOTE | 2020-04-23 22:58 | NUR ---
Dr. Ventura spoke to Dr. Leslie regarding admission. admission packet sent to admiting.
[2020-04-23 23:03] LABS: CALCIUM, SERUM 8.5 mg/dL (8.5-10.1); CARBON DIOXIDE 21 mmol/L (21-32); CHLORIDE 111 mmol/L (98-107); GLUCOSE 88 mg/dL (74-106); POTASSIUM 4.4 mmol/L (3.5-5.1); SODIUM SERUM 145 mmol/L (136-145); UREA NITROGEN, BLOOD 45 mg/dL (7-18)
[2020-04-23 23:08] LABS: ALANINE AMINOTRANSFERASE 24 U/L (12-78); ALBUMIN 2.3 g/dL (3.4-5.0); ALKALINE PHOSPHATASE 61 U/L (46-116); ASPARTATE AMINOTRANSFERASE 17 U/L (15-37); BILIRUBIN,DIRECT 0.1 mg/dL (0.0-0.2); BILIRUBIN,TOTAL 0.2 mg/dL (0.2-1.0); TOTAL PROTEIN, SERUM 7.2 g/dL (6.4-8.2)
--- NOTE | 2020-04-23 23:26 | NUR ---
Called RN Sup for tele bed, aware covid -
--- NOTE | 2020-04-23 23:40 | NUR ---
BED 327-2
--- NOTE | 2020-04-23 23:46 | NUR ---
tried calling for report, no nurse assigned.
[2020-04-24] VITALS (7 sets, daily range): BP systolic 134–149; BP diastolic 59–69
[2020-04-24] MEDS ORDERED: Medication Not On Formulary EA (Mag Hydrox/Al Hydrox/Simeth (Maalox Maximum Strength Sus PO PRN
[2020-04-24] MEDS ORDERED: NA PHOS,M-B/NA PHOS,DI-BA 1 EA ENEMA RC PRN
[2020-04-24] MEDS ORDERED: ACETAMINOPHEN 325 MG TABLET PO PRN ×2
[2020-04-24] MEDS ORDERED: CLONIDINE HCL 0.1 MG TABLET PO PRN
[2020-04-24] MEDS ORDERED: Z GUARD REMEDY 2 OZ OINT TP PRN
[2020-04-24] MEDS ORDERED: ONDANSETRON HCL/PF 4 MG/2 ML VIAL IVP PRN
[2020-04-24] MEDS ORDERED: MAGNESIUM HYDROXIDE 30 ML UDC PO PRN
[2020-04-24] MEDS ORDERED: MAG HYDROX/AL HYDROX/SIMETH 30 ML UDC PO PRN
--- NOTE | 2020-04-24 00:19 | NUR ---
REPORT GIVEN TO DREA PAEZ FOR ILDEFONSO.
--- NOTE | 2020-04-24 00:27 | NUR ---
PATIENT CAME FROM ER, AWAKE, A/O X1. NO S/S OF DISTRESS NOTED. NO COMPLAIN OF PAIN. CALL LIGHT WITHIN REACH. BED IN LOWEST AND LOCKED POSITION. BED ALARM ON. PATIENT VOIDED IN THE DIAPER FROM SNF, REMOVED, PERINEAL CARE DONE, KEPT THE PATIENT CLEAN AND DRY. CALLED THE SNF [facility] AND TALKED TO THE STAFF NAME-SHAMIR RE: FLU SHOT-GIVEN 2018 AND PNA SHOT 2019 ALSO.
[2020-04-24] MEDS: busPIRone 5 MG TABLET PO SCH ×3 (02:12→17:37)
[2020-04-24] MEDS: ENOXAPARIN SODIUM 30 MG/0.3 ML DISP.SYRIN SQ SCH ×2 (02:13→21:01)
[2020-04-24] MEDS: IV NS 0.9% 1,000 ML IV PRN ×2 (04:00→18:55)
[2020-04-24 07:22] LABS: CALCIUM, SERUM 8.5 mg/dL (8.5-10.1); CARBON DIOXIDE 24 mmol/L (21-32); CHLORIDE 113 mmol/L (98-107); CREATININE 1.8 mg/dL (0.6-1.3); GLUCOSE 86 mg/dL (74-106); MAGNESIUM 2.5 mg/dL (1.8-2.4); PHOSPHORUS 3.8 mg/dL (2.5-4.9); POTASSIUM 4.4 mmol/L (3.5-5.1); SODIUM SERUM 145 mmol/L (136-145); UREA NITROGEN, BLOOD 39 mg/dL (7-18)
[2020-04-24 07:25] LABS: BASOPHILS % (AUTO) 0.6 % (0.0-2.0); EOSINOPHILS % (AUTO) 4.6 % (0.0-6.0); HEMATOCRIT 26 % (33-45); HEMOGLOBIN 8.6 g/dL (11.5-14.8); LYMPHOCYTES # (AUTO) 1.3 /CMM (0.8-4.8); LYMPHOCYTES % (AUTO) 21.3 % (20.0-44.0); MEAN CORPUSCULAR HGB CONC 33 g/dl (31.0-36.0); MEAN CORPUSCULAR VOLUME 93 fL (82-100); MONOCYTES # (AUTO) 0.6 /CMM (0.1-1.30); MONOCYTES % (AUTO) 9.1 % (2.0-12.0); NEUTROPHILS # (AUTO) 3.9 /CMM (1.8-8.9); NEUTROPHILS % (AUTO) 64.4 % (43.0-81.0); PLATELET COUNT (AUTO) 286 /CMM (150-450); RED BLOOD CELL COUNT(AUTO) 2.81 MIL/uL (4.0-5.2); WHITE BLOOD COUNT (AUTO) 6.1 K/uL (4.3-11.0)
--- NOTE | 2020-04-24 07:33 | NUR ---
PUBLIC HEALTH REPRESENTATIVE OPENING NOTES PATIENT RECEIVED IN BED AWAKE IN NO ACUTE SIGNS O DISTRESS. A/O X1. CONFUSED. APPEARS COMFORTABLE WITH NO S/S OF PAIN OR ANY DISCOMFORTS NOTED AT THIS TIME. ON ROOM AIR, BREATHING IS EVEN AND UNLABORED. PATIENT ON TELE- MONITORING WITH READING OF A-FLUTTER WITH HR OF 60 AT THIS TIME, NO S/S OF CARDIAC DISTRESS NOTED. IV ACCESS ON RIGHT WRIST G#20 INTACT AND PATENT, IVF OF NS @ 75ML/HR INFUSING, NO S/S OF INFILTRATION AT SITE NOTED. SAFETY PRECAUTIONS IN PLACE: BED IS LOCKED AND IN LOWEST POSITION, SR UP X2 AND CALL LIGHT WITHIN REACH. WILL CONTINUE TO MONITOR.
[2020-04-24] MEDS: LEVOTHYROXINE SODIUM 75 MCG TABLET PO SCH (07:50)
[2020-04-24] MEDS ORDERED: LORATADINE 10 MG TAB.RAPDIS 24H PO SCH (09:00)
[2020-04-24] MEDS: MULTIVIT W/MINERALS 1 TAB TABLET PO SCH (09:21)
[2020-04-24] MEDS: DOCUSATE SODIUM 100 MG CAPSULE PO SCH (09:22)
[2020-04-24] MEDS: MEGESTROL ACETATE 40 MG TABLET PO SCH ×2 (09:22→17:37)
[2020-04-24] MEDS: MEMANTINE HCL 5 MG TABLET PO SCH ×2 (09:22→17:37)
[2020-04-24] MEDS: AMLODIPINE BESYLATE 10 MG TABLET PO SCH (09:33)
--- NOTE | 2020-04-24 14:02 | NUR ---
RN NOTES URINE SPECIMEN COLLECTED VIA STRAIGHT CATHETERIZATION. LAB CALLED TO PICK-UP SPECIMEN. WILL CONTINUE TO MONITOR PT.
[2020-04-24 15:34] LABS: BILIRUBIN,URINE NEGATIVE (NEGATIVE); BLOOD, URINE MODERATE Ery/uL (NEGATIVE); COLOR,URINE YELLOW (YELLOW); LEUKOCYTE ESTERASE ,URINE TRACE (NEGATIVE); NITRITE, URINE POSITIVE (NEGATIVE); PH,URINE 6.5 (5.0-8.0); PROTEIN,URINE 30 mg/dl (NEGATIVE); UGLUCOSE NEGATIVE (NEGATIVE)
[2020-04-24 16:14] LABS: RBC,URINE 21-50 /HPF (0-2)
[2020-04-24 16:15] LABS: BACTERIA,URINE 3+ /HPF (None Seen); SQUAMOUS EPITHELIAL CELL,UR Few /HPF (None Seen); WBC,URINE TOO NUMEROUS TO COUN /HPF (0-3)
[2020-04-24 16:16] LABS: EOSINOPHIL,URINE Rare
[2020-04-24 16:46] LABS: CREATININE, URINE 85.2 MG/DL (30.0-125.0)
--- NOTE | 2020-04-24 16:48 | NUR ---
RN NOTES PATIENT NOTED WITH URINE WBC TOO NUMEROUS TO COUNT AND URINE BACTERIA 3+. CALLED AND REPORTED TO DR. AVILES AND STATED HE WILL PUT IN A NEW ORDER.
[2020-04-24] MEDS: SERTRALINE HCL 50 MG TABLET PO SCH (17:37)
[2020-04-24] MEDS: CEFTRIAXONE 1 G in IV D5W 50 ML IV SCH (19:03)
--- NOTE | 2020-04-24 20:00 | NUR ---
RN NOTES ALERT AND ORIENTED X1, CONFUSED, ROOM AIR, TALKS TO SELF, RESTLESS, NO COMPLAIN OF PAIN, NS AT 75 ML/HR, INCONTINENT OF BOWEL AND BLADDER, KEPT SAFE, WILL CONTINUE TO MONITOR
[2020-04-24] MEDS: DONEPEZIL 5 MG TABLET PO SCH (21:31)
[2020-04-24] MEDS ORDERED: Medication Not On Formulary EA (Melatonin 3 MG) PO SCH (22:00)
[2020-04-25 00:31] VITALS: BP 141/56
[2020-04-25 04:00] VITALS: BP 139/80
--- NOTE | 2020-04-25 06:19 | NUR ---
RN NOTES ALERT AND ORIENTED X1, CONFUSED, TALKING TO SELF, SCRATCHING ARMS, KEEPS REMOVING HORTENCIA SLEEVE, INCONTINENT OF BOWEL AND BLADDER, PER NEPHRO RESUME LISINOPRIL WHEN KIDNEY FUNCTION RECOVERS, HYDRATE, MONITOR RENAL FUNCTION, SUPPORTIVE CARE.
[2020-04-25 06:57] LABS: BASOPHILS % (AUTO) 0.6 % (0.0-2.0); EOSINOPHILS % (AUTO) 4.6 % (0.0-6.0); HEMATOCRIT 26 % (33-45); HEMOGLOBIN 8.6 g/dL (11.5-14.8); LYMPHOCYTES # (AUTO) 1.3 /CMM (0.8-4.8); LYMPHOCYTES % (AUTO) 22.8 % (20.0-44.0); MEAN CORPUSCULAR HGB CONC 32 g/dl (31.0-36.0); MEAN CORPUSCULAR VOLUME 93 fL (82-100); MONOCYTES # (AUTO) 0.4 /CMM (0.1-1.30); MONOCYTES % (AUTO) 7.7 % (2.0-12.0); NEUTROPHILS # (AUTO) 3.7 /CMM (1.8-8.9); NEUTROPHILS % (AUTO) 64.3 % (43.0-81.0); PLATELET COUNT (AUTO) 294 /CMM (150-450); RED BLOOD CELL COUNT(AUTO) 2.85 MIL/uL (4.0-5.2); WHITE BLOOD COUNT (AUTO) 5.7 K/uL (4.3-11.0)
--- NOTE | 2020-04-25 07:30 | NUR ---
RN OPENING NOTES PATIENT IN BED AWAKE IN NO ACUTE SIGNS O DISTRESS. A/O X1. CONFUSED. APPEARS COMFORTABLE WITH NO S/S OF PAIN OR ANY DISCOMFORTS NOTED AT THIS TIME. ON ROOM AIR, BREATHING IS EVEN AND UNLABORED. PATIENT ON TELE- MONITORING WITH READING OF SR WITH HR OF 60 AT THIS TIME, NO S/S OF CARDIAC DISTRESS NOTED. IV ACCESS ON RIGHT WRIST G#20 INTACT AND PATENT, IVF OF NS @ 75ML/HR INFUSING, NO S/S OF INFILTRATION AT SITE NOTED. SAFETY PRECAUTIONS IN PLACE: BED IS LOCKED AND IN LOWEST POSITION, SR UP X2 AND CALL LIGHT WITHIN REACH. WILL CONTINUE TO MONITOR.
[2020-04-25 07:32] LABS: ALANINE AMINOTRANSFERASE 19 U/L (12-78); ALBUMIN 2.2 g/dL (3.4-5.0); ALKALINE PHOSPHATASE 57 U/L (46-116); ASPARTATE AMINOTRANSFERASE 14 U/L (15-37); BILIRUBIN,TOTAL 0.2 mg/dL (0.2-1.0); CALCIUM, SERUM 8.3 mg/dL (8.5-10.1); CARBON DIOXIDE 21 mmol/L (21-32); CHLORIDE 112 mmol/L (98-107); CREATININE 1.7 mg/dL (0.6-1.3); GLUCOSE 86 mg/dL (74-106); MAGNESIUM 2.1 mg/dL (1.8-2.4); PHOSPHORUS 3.3 mg/dL (2.5-4.9); POTASSIUM 4.4 mmol/L (3.5-5.1); SODIUM SERUM 144 mmol/L (136-145); TOTAL PROTEIN, SERUM 6.9 g/dL (6.4-8.2); UREA NITROGEN, BLOOD 27 mg/dL (7-18)
[2020-04-25 07:34] LABS: CREATINE KINASE, TOTAL 40 U/L (26-192)
[2020-04-25 08:00] VITALS: BP 152/72
[2020-04-25] MEDS: DOCUSATE SODIUM 100 MG CAPSULE PO SCH (08:43)
[2020-04-25] MEDS: LEVOTHYROXINE SODIUM 75 MCG TABLET PO SCH (08:43)
[2020-04-25] MEDS: busPIRone 5 MG TABLET PO SCH ×2 (08:43→16:14)
[2020-04-25] MEDS: AMLODIPINE BESYLATE 10 MG TABLET PO SCH (08:43)
[2020-04-25] MEDS: MEMANTINE HCL 5 MG TABLET PO SCH ×2 (08:44→16:14)
[2020-04-25] MEDS: MEGESTROL ACETATE 40 MG TABLET PO SCH ×2 (08:44→16:14)
[2020-04-25] MEDS: LORATADINE 10 MG TABLET PO SCH (08:44)
[2020-04-25] MEDS: MULTIVIT W/MINERALS 1 TAB TABLET PO SCH (08:44)
[2020-04-25 12:00] VITALS: BP 150/60
[2020-04-25] MEDS: IV NS 0.9% 1,000 ML IV PRN (14:51)
[2020-04-25 16:00] VITALS: BP 140/60
[2020-04-25] MEDS: SERTRALINE HCL 50 MG TABLET PO SCH (17:42)
[2020-04-25] MEDS: CEFTRIAXONE 1 G in IV D5W 50 ML IV SCH (17:42)
--- NOTE | 2020-04-25 19:45 | NUR ---
RN CLOSING NOTES PATIENT IN BED AWAKE IN NO ACUTE SIGNS O DISTRESS. A/O X1. CONFUSED. NO S/S OF PAIN OR ANY DISCOMFORTS NOTED AT THIS TIME. ON ROOM AIR, BREATHING IS EVEN AND UNLABORED. PATIENT ON TELE- MONITORING WITH READING OF SR. NO S/S OF CARDIAC DISTRESS NOTED. IV ACCESS ON RIGHT WRIST G#20 INTACT AND PATENT, IVF OF NS @ 75ML/HR INFUSING, NO S/S OF INFILTRATION AT SITE NOTED. ALL NEEDS MET AND ATTENDED. ALL DUE MEDS ADMINISTERED. NO ASE NOTED. SAFETY PRECAUTIONS IN PLACE: BED IS LOCKED AND IN LOWEST POSITION, SR UP X2 AND CALL LIGHT WITHIN REACH. ENDORSED TO SADIE COMMERCIAL SHEET METAL FOREMAN RN FOR ILDEFONSO.
--- NOTE | 2020-04-25 19:46 | NUR ---
RN PM OPENING NOTE REPORT RECIEVED FROM ANN-MARIE PAEZ. PATIENT IN BED AWAKE IN NO APPARENT DISTRESS. A/O X1. CONFUSED. NO S/S OF PAIN OR ANY DISCOMFORTS AT THIS TIME. ON ROOM AIR, BREATHING EVEN AND UNLABORED. ON TELE- MONITORING WITH READING OF SR. IV ACCESS ON RIGHT WRIST G#20 INTACT INFUSING, NS @ 75ML/HR NO S/S OF INFILTRATION AT SITE. SAFETY PRECAUTIONS IN PLACE: BED IS LOCKED AND IN LOWEST POSITION, SR UP X2 AND CALL LIGHT WITHIN REACH. WILL CONT TO MONITOR.
[2020-04-25 20:00] VITALS: BP 159/66
--- NOTE | 2020-04-25 21:44 | NUR ---
SPOKE WITH SON MU UPDATED ON MOTHERS CONTION AND POC. QUESTIONS CONCERNS ADDRESSED.
[2020-04-25] MEDS: ENOXAPARIN SODIUM 30 MG/0.3 ML DISP.SYRIN SQ SCH (21:49)
[2020-04-25] MEDS: DONEPEZIL 5 MG TABLET PO SCH (21:49)
[2020-04-26] VITALS: BP 150/76
[2020-04-26] MEDS: IV NS 0.9% 1,000 ML IV PRN (02:45)
[2020-04-26 04:00] VITALS: BP 127/91
[2020-04-26 07:06] LABS: PTH, INTACT 38 pg/mL (15-65)
--- NOTE | 2020-04-26 07:25 | NUR ---
AIRCRAFT POWERPLANT REPAIRER OPENING NOTES PATIENT RECEIVED AWAKE IN BED IN NO ACUTE SIGNS O DISTRESS. A/O X1. CONFUSED. APPEARS COMFORTABLE WITH NO S/S OF PAIN OR ANY DISCOMFORTS NOTED AT THIS TIME. ON ROOM AIR, BREATHING EVEN AND UNLABORED. TELE- MONITORING SHOW CURRENT READING OF NSR WITH HR OF 70, NO S/S OF CARDIAC DISTRESS NOTED. IV ACCESS ON RIGHT WRIST G#20 INTACT AND PATENT, IVF OF NS @ 75ML/HR INFUSING WELL, NO S/S OF INFILTRATION AT SITE NOTED. SAFETY PRECAUTIONS IN PLACE: BED IS LOCKED AND IN LOWEST POSITION, SR UP X2 AND CALL LIGHT WITHIN REACH. WILL CONTINUE TO MONITOR.
[2020-04-26] MEDS: LEVOTHYROXINE SODIUM 75 MCG TABLET PO SCH (07:40)
[2020-04-26 08:00] VITALS: BP 146/90
[2020-04-26] MEDS: MULTIVIT W/MINERALS 1 TAB TABLET PO SCH (08:56)
[2020-04-26] MEDS: LORATADINE 10 MG TABLET PO SCH (08:56)
[2020-04-26] MEDS: DOCUSATE SODIUM 100 MG CAPSULE PO SCH (08:56)
[2020-04-26] MEDS: busPIRone 5 MG TABLET PO SCH ×2 (08:56→17:03)
[2020-04-26] MEDS: MEMANTINE HCL 5 MG TABLET PO SCH ×2 (08:57→17:03)
[2020-04-26] MEDS: MEGESTROL ACETATE 40 MG TABLET PO SCH ×2 (08:57→17:02)
[2020-04-26] MEDS: AMLODIPINE BESYLATE 10 MG TABLET PO SCH (08:57)
[2020-04-26 12:00] VITALS: BP 140/69
--- NOTE | 2020-04-26 15:17 | NUR ---
RN NOTES PT NOTED WITH DISLODGED IV ACCESS ON RIGHT WRIST. NO ACTIVE BLEEDING NOTED. NEW IV ACCESS INSERTED TO LFA G#22 , TAPED AND DATED. IVF OF NS @ 75ML/HR RESUMED. WILL CONTINUE TO MONITOR.
[2020-04-26 16:00] VITALS: BP 133/54
[2020-04-26] MEDS: SERTRALINE HCL 50 MG TABLET PO SCH (17:03)
[2020-04-26] MEDS: MEROPENEM 500 MG in IV NS 0.9% 100 ML IV SCH (17:43)
--- NOTE | 2020-04-26 18:47 | NUR ---
QA CONSULTANT CLOSING NOTES PATIENT AWAKE AT THIS TIME. HOB ELEVATED. A/O X1. CONFUSED. ON ROOM AIR, BREATHING EVEN AND UNLABORED. TELE- MONITORING SHOW CURRENT READING OF NSR WITH HR OF 90'S NO S/S OF CARDIAC DISTRESS NOTED. IV ACCESS ON RIGHT FA G#22 INTACT AND PATENT, IV ATB MERREM INFUSING AT 33.33 ML/HR AT THIS TIME, NO S/S OF INFILTRATION AT SITE NOTED. PT TURNED AND REPOSITIONED Q 2HRS AND PRN. ALL DUE NURSING CARE DONE AND MET. SAFETY PRECAUTIONS IN PLACE: BED IS LOCKED AND IN LOWEST POSITION, SR UP X2 AND CALL LIGHT WITHIN REACH. WILL ENDORSE TO CONTACT OFFICER NURSE FOR ILDEFONSO.
--- NOTE | 2020-04-26 19:40 | NUR ---
FLIGHT OPERATIONS COORDINATOR OPENING NOTES RECEIVED PATIENT RESTING IN BED COMFORTABLY; A/OX1, CONFUSED; BREATHING EVEN AND UNLABORED ON ROOM AIR; NO SOB NOTED; NO DISTRESS NOTED; TELE MONITOR READS SINUS RHYTHM; R WRIST #20 INTACT AND PATENT, FLUSHING WELL; TOLERATING IVF WELL; SAFETY PRECAUTIONS IMPLEMENTED; BED LOCKED IN LOW POSITION; SIDE RAILSX2; CALL LIGHT WITHIN REACH; WILL CONT TO MONITOR
[2020-04-26 20:00] VITALS: BP 151/77
[2020-04-26] MEDS: DONEPEZIL 5 MG TABLET PO SCH (21:04)
[2020-04-26] MEDS: ENOXAPARIN SODIUM 30 MG/0.3 ML DISP.SYRIN SQ SCH (21:05)
[2020-04-27] VITALS: BP 148/69
--- NOTE | 2020-04-27 03:00 | NUR ---
FINISHING TUNNEL OPERATOR NOTES PATIENT CONFUSED, MUMBLING RANDOM WORDS; PATIENT LAUGHING; NO DISTRESS NOTED; PATIENT ABLE TO FOLLOW COMMANDS; WILL CONT TO MONITOR
[2020-04-27 04:00] VITALS: BP 164/61
[2020-04-27] MEDS: MEROPENEM 500 MG in IV NS 0.9% 100 ML IV SCH ×2 (04:10→18:25)
[2020-04-27] MEDS: IV NS 0.9% 1,000 ML IV PRN (04:14)
--- NOTE | 2020-04-27 06:48 | NUR ---
CHEF MANAGER CLOSING NOTES PATIENT RESTING IN BED COMFORTABLY; A/OX1, CONFUSED; ABLE TO FOLLOW COMMANDS; BREATHING EVEN AND UNLABORED; NO SOB NOTED; NO DISTRESS NOTED; TOLERATING ROOM AIR WELL; TELE MONITOR READS SINUS RHYTHM-SINUS TACHY; R FA #22 INTACT AND PATENT, TOLERATING IVF WELL; ALL NEEDS RENDERED; SAFETY PRECAUTIONS IMPLEMENTED; WILL ENDORSE ILDEFONSO TO ONCOMING SHIFT
--- NOTE | 2020-04-27 07:30 | NUR ---
RECEIVED PT. AM.VERY CONFUSED AND PULLING AT THINGS.SIDE RAILS UP.ON RM. AIR. HOB ELEVATED.
[2020-04-27 08:00] VITALS: BP 159/65
[2020-04-27] MEDS: MEMANTINE HCL 5 MG TABLET PO SCH ×2 (09:00→18:26)
[2020-04-27] MEDS: MEGESTROL ACETATE 40 MG TABLET PO SCH ×2 (10:59→18:26)
[2020-04-27] MEDS: AMLODIPINE BESYLATE 10 MG TABLET PO SCH (10:59)
[2020-04-27] MEDS: LEVOTHYROXINE SODIUM 75 MCG TABLET PO SCH (10:59)
[2020-04-27] MEDS: busPIRone 5 MG TABLET PO SCH ×2 (10:59→18:25)
[2020-04-27] MEDS: MULTIVIT W/MINERALS 1 TAB TABLET PO SCH (10:59)
[2020-04-27] MEDS: LORATADINE 10 MG TABLET PO SCH (10:59)
[2020-04-27] MEDS: DOCUSATE SODIUM 100 MG CAPSULE PO SCH (11:00)
[2020-04-27 12:00] VITALS: BP 148/83
[2020-04-27 12:07] LABS: *SPE A/G RATIO 0.6 (0.7-1.7); *SPE ALBUMIN 2.3 g/dL (2.9-4.4); *SPE ALPHA-1-GLOBULIN 0.3 g/dL (0.0-0.4); *SPE BETA GLOBULIN 0.9 g/dL (0.7-1.3); *SPE GLOBULIN, TOTAL 3.9 g/dL (2.2-3.9); *SPE M-SPIKE Not Observed g/dL (Not Observed); *SPEGAMMA GLOBULIN 1.7 g/dL (0.4-1.8)
--- NOTE | 2020-04-27 14:00 | NUR ---
iv infiltrated,removed and restart in lt. hand #22 angio.
[2020-04-27 16:00] VITALS: BP 152/89
--- NOTE | 2020-04-27 18:00 | NUR ---
APPETITE FAIR.VS STABLE.
[2020-04-27] MEDS: SERTRALINE HCL 50 MG TABLET PO SCH (18:26)
--- NOTE | 2020-04-27 19:47 | NUR ---
TROLLEY CAR MECHANIC OPENING NOTES PATIENT RECEIVED RESTING IN BED COMFORTABLY; A/OX1, CONFUSED; BREATHING EVENLY AND UNLABORED; TOLERATING ROOM AIR WELL; NO SOB NOTED; NO DISTRESS NOTED; TELE MONITOR READS SINUS RHYTHM; L HAND #22 INTACT AND PATENT, FLUSHING WELL; SAFETY PRECAUTIONS IMPLEMENTED; BED LOCKED IN LOW POSITION; SIDE RAILSX2; CALL LIGHT WITHIN REACH; WILL CONT TO MONITOR
[2020-04-27 20:00] VITALS: BP 124/72
--- NOTE | 2020-04-27 20:57 | NUR ---
INSTRUCTIONAL DESIGN SPECIALIST NOTES SPOKE WITH PATIENT'S SON, MU; REQUESTING PHYSICAL THERAPY EVAL AND TO SPEAK WITH MD IN AM; WILL INFORM AM SHIFT; WILL CONT TO MONITOR
[2020-04-27] MEDS: DONEPEZIL 5 MG TABLET PO SCH (21:26)
[2020-04-27] MEDS: ENOXAPARIN SODIUM 30 MG/0.3 ML DISP.SYRIN SQ SCH (21:28)
[2020-04-28] VITALS: BP 122/53
[2020-04-28 04:00] VITALS: BP 137/67
[2020-04-28] MEDS: MEROPENEM 500 MG in IV NS 0.9% 100 ML IV SCH (04:02)
--- NOTE | 2020-04-28 06:55 | NUR ---
SANITATION TECHNICIAN CLOSING NOTES PATIENT RESTING IN BED COMFORTABLY; A/OX1, CONFUSED; BREATHING EVEN AND UNLABORED; NO SOB NOTED; NO DISTRESS NOTED; TOLERATING ROOM AIR WELL; TELE MONITOR READS SINUS RHYTHM; L HAND #22 INTACT AND PATENT, FLUSHING WELL; TOLERATING IVF WELL; ALL NEEDS RENDERED; SAFETY PRECAUTIONS IMPLEMENTED; WILL ENDORSE ILDEFONSO TO ONCOMING SHFIT
--- NOTE | 2020-04-28 07:30 | NUR ---
RECEIVED PT. IN AM ALERT AND ORIENTED X1.CONFUSED,MOVES ABOUT FREQ.AND RESISTIVE TO CARE.IV INFUSING.SIDE RAILS UP.
[2020-04-28 08:00] VITALS: BP 145/63
[2020-04-28] MEDS ORDERED: MERO500V23 IV (08:34)
[2020-04-28 08:36] LABS: BASOPHILS % (AUTO) 0.6 % (0.0-2.0); HEMATOCRIT 26 % (33-45); HEMOGLOBIN 8.7 g/dL (11.5-14.8); LYMPHOCYTES # (AUTO) 0.6 /CMM (0.8-4.8); MEAN CORPUSCULAR HGB CONC 33 g/dl (31.0-36.0); MEAN CORPUSCULAR VOLUME 93 fL (82-100); MONOCYTES # (AUTO) 0.4 /CMM (0.1-1.30); MONOCYTES % (AUTO) 7.3 % (2.0-12.0); NEUTROPHILS # (AUTO) 3.7 /CMM (1.8-8.9); NEUTROPHILS % (AUTO) 74.1 % (43.0-81.0); PLATELET COUNT (AUTO) 246 /CMM (150-450); RED BLOOD CELL COUNT(AUTO) 2.85 MIL/uL (4.0-5.2)
[2020-04-28 08:42] LABS: CALCIUM, SERUM 8.7 mg/dL (8.5-10.1); CARBON DIOXIDE 20 mmol/L (21-32); CHLORIDE 110 mmol/L (98-107); CREATININE 1.5 mg/dL (0.6-1.3); GLUCOSE 86 mg/dL (74-106); POTASSIUM 4.1 mmol/L (3.5-5.1); SODIUM SERUM 141 mmol/L (136-145); UREA NITROGEN, BLOOD 17 mg/dL (7-18)
[2020-04-28] MEDS: DOCUSATE SODIUM 100 MG CAPSULE PO SCH (11:06)
[2020-04-28] MEDS: MULTIVIT W/MINERALS 1 TAB TABLET PO SCH (11:06)
[2020-04-28] MEDS: MEMANTINE HCL 5 MG TABLET PO SCH (11:06)
[2020-04-28] MEDS: MEGESTROL ACETATE 40 MG TABLET PO SCH (11:06)
[2020-04-28] MEDS: LORATADINE 10 MG TABLET PO SCH (11:06)
[2020-04-28] MEDS: busPIRone 5 MG TABLET PO SCH (11:06)
[2020-04-28 11:07] VITALS: BP 145/63
[2020-04-28] MEDS: AMLODIPINE BESYLATE 10 MG TABLET PO SCH (11:07)
[2020-04-28] MEDS: LEVOTHYROXINE SODIUM 75 MCG TABLET PO SCH (11:07)
--- NOTE | 2020-04-28 13:30 | NUR ---
REPORT CALLED TO LORA PAEZ AT TRANSFERRING FACILITY.PAPER WORK COMPLETED AND SIGNATURES OBTAINED.HEP LOCK LEFT IN PT. TO BE ON MERREM DUE TO UTI.
--- NOTE | 2020-04-28 14:35 | NUR ---
AMBULANCE HERE AND REPORT TO DRIVERS,TAKEN TO FACILITY.
--- NOTE | 2020-04-28 14:35 | NUR ---
UNABLE TO DO DISCHARGE PHOTOS PT. UNCOOPERATIVE AND FIGHTING WITH NURSE.
== END 2020-04-28 14:30 | DRG 689 ==
LOC: ER 22:26 → TELE 04-24 00:11
PROVIDERS: ADMIT Internal Medicine; ATTEND Family Medicine
DX: N39.0 Urinary tract infection, site not specified (principal); N17.0 Acute kidney failure with tubular necrosis; G93.41 Metabolic encephalopathy; E43 Unspecified severe protein-calorie malnutrition; Z16.12 Extended spectrum beta lactamase (ESBL) resistance; I12.9 Hypertensive chronic kidney disease with stage 1 through stage 4 chronic kidney disease, or unspecified chronic kidney disease; N18.9 Chronic kidney disease, unspecified; E03.9 Hypothyroidism, unspecified; E78.5 Hyperlipidemia, unspecified; B96.20 Unspecified Escherichia coli [E. coli] as the cause of diseases classified elsewhere; D64.9 Anemia, unspecified; F02.80 Dementia in other diseases classified elsewhere, unspecified severity, without behavioral disturbance, psychotic disturbance, mood disturbance, and anxiety; G30.9 Alzheimer's disease, unspecified; M47.812 Spondylosis without myelopathy or radiculopathy, cervical region; Z90.710 Acquired absence of both cervix and uterus; D63.1 Anemia in chronic kidney disease; Z88.2 Allergy status to sulfonamides; Z79.899 Other long term (current) drug therapy; F41.9 Anxiety disorder, unspecified; F32.9 Major depressive disorder, single episode, unspecified; Z86.14 Personal history of Methicillin resistant Staphylococcus aureus infection
CPT/HCPCS: 36415; 80048-TC; 80053-TC; 80076-TC; 81001; 82550-TC; 82570-TC; 83735-TC; 83970; 84100-TC; 84155; 84155-TC; 84165; 84300-TC; 85025-TC; 87081-TC; 87086-TC; 87186-TC; 97530-TC; C9803; G0378; J0696; J1650; J2185; J7030; J7060

== ENCOUNTER 2020-04-28 16:30 | Inpatient (IN) | payer MEDICARE, BC, OTHER ==
[~2020-04-28] VITALS: Ht 167.6 cm; Wt 56.2 kg
[~2020-04-28 16:30] MED LIST changes: +MERO500V23 IV
--- NOTE | 2020-04-28 16:38 | NUR ---
CHASITY FROM [facility], SENT FOR FURTHER EVAL FOR TEMP OF 99.7F. TO ER BED 8, HOOKED TO BP CUFF AND POX. VSS. CHANGED TO HOSP GOWN. PATIENT NOTED WITH TREMORS. AAO x 0. BREATHING EVEN AND UNLABORED. WARM BLANKET PROVIDED. AWAITING MD JARA
--- NOTE | 2020-04-28 16:54 | NUR ---
DR DINH AT BEDSIDE FOR EVAL
[2020-04-28] MEDS ORDERED: MEROPENEM 1 G in IV NS 0.9% 100 ML IV SCH (17:30)
[2020-04-28 17:39] LABS: BASOPHILS % (AUTO) 0.7 % (0.0-2.0); EOSINOPHILS % (AUTO) 3.5 % (0.0-6.0); HEMATOCRIT 26 % (33-45); HEMOGLOBIN 8.6 g/dL (11.5-14.8); LYMPHOCYTES # (AUTO) 0.6 /CMM (0.8-4.8); MEAN CORPUSCULAR HGB CONC 34 g/dl (31.0-36.0); MEAN CORPUSCULAR VOLUME 93 fL (82-100); MONOCYTES # (AUTO) 0.4 /CMM (0.1-1.30); NEUTROPHILS # (AUTO) 3.4 /CMM (1.8-8.9); NEUTROPHILS % (AUTO) 73.8 % (43.0-81.0); PLATELET COUNT (AUTO) 261 /CMM (150-450); RED BLOOD CELL COUNT(AUTO) 2.77 MIL/uL (4.0-5.2); WHITE BLOOD COUNT (AUTO) 4.7 K/uL (4.3-11.0)
[2020-04-28 17:51] LABS: ALANINE AMINOTRANSFERASE 17 U/L (12-78); ALBUMIN 2.5 g/dL (3.4-5.0); ALKALINE PHOSPHATASE 62 U/L (46-116); ASPARTATE AMINOTRANSFERASE 21 U/L (15-37); BILIRUBIN,DIRECT 0.1 mg/dL (0.0-0.2); BILIRUBIN,TOTAL 0.2 mg/dL (0.2-1.0); CALCIUM, SERUM 8.9 mg/dL (8.5-10.1); CARBON DIOXIDE 20 mmol/L (21-32); CHLORIDE 108 mmol/L (98-107); CREATININE 1.6 mg/dL (0.6-1.3); GLUCOSE 104 mg/dL (74-106); POTASSIUM 4.4 mmol/L (3.5-5.1); SODIUM SERUM 141 mmol/L (136-145); TOTAL PROTEIN, SERUM 7.4 g/dL (6.4-8.2)
--- NOTE | 2020-04-28 18:00 | NUR ---
URINE SAMPLE COLLECTED VIA STRAIGHT CATHETER. SAMPLE SENT TO LAB
[2020-04-28 18:05] LABS: UREA NITROGEN, BLOOD 17 mg/dL (7-18)
[2020-04-28 18:13] LABS: BILIRUBIN,URINE Negative (NEGATIVE); BLOOD, URINE Large Ery/uL (NEGATIVE); COLOR,URINE YELLOW (YELLOW); LEUKOCYTE ESTERASE ,URINE Large (NEGATIVE); NITRITE, URINE Negative (NEGATIVE); PH,URINE 5.5 (5.0-8.0); PROTEIN,URINE 100 mg/dl (NEGATIVE); UGLUCOSE Negative (NEGATIVE); UROBILINOGEN,URINE 0.2 EU/dL (0.2)
[2020-04-28 18:30] LABS: BACTERIA,URINE Few /HPF (None Seen); RBC,URINE TOO NUMEROUS TO COUN /HPF (0-2); WBC,URINE TOO NUMEROUS TO COUN /HPF (0-3)
--- NOTE | 2020-04-28 18:36 | NUR ---
COVID19 RAPID AND PCR SWAB DONE AND SENT TO LAB
--- NOTE | 2020-04-28 19:45 | NUR ---
PT IN BED RESTING COMFORTABLY. VSS.
--- NOTE | 2020-04-28 19:46 | NUR ---
CALL FROM LAB. RAPID COVID NEGATIVE.
[2020-04-28] MEDS ORDERED: Medication Not On Formulary EA (Melatonin 3 MG) PO SCH (22:00)
[2020-04-28] MEDS ORDERED: ONDANSETRON HCL/PF 4 MG/2 ML VIAL IVP PRN (22:00)
[2020-04-28] MEDS ORDERED: HYDROCODONE/APAP 5/325MG TABLET PO PRN (22:00)
[2020-04-28] MEDS ORDERED: IV NS 0.9% 1,000 ML IV PRN (22:00)
[2020-04-28] MEDS ORDERED: CLONIDINE HCL 0.1 MG TABLET PO PRN (22:00)
[2020-04-28] MEDS ORDERED: ZOLPIDEM TARTRATE 5 MG TABLET PO PRN (22:00)
[2020-04-28] MEDS ORDERED: Z GUARD REMEDY 2 OZ OINT TP PRN (22:00)
[2020-04-28] MEDS ORDERED: MAGNESIUM HYDROXIDE 30 ML UDC PO PRN (22:00)
[2020-04-28] MEDS ORDERED: MAG HYDROX/AL HYDROX/SIMETH 30 ML UDC PO PRN (22:00)
[2020-04-28] MEDS ORDERED: ACETAMINOPHEN 325 MG TABLET PO PRN (22:00)
--- NOTE | 2020-04-28 22:27 | NUR ---
REPROT GIVEN TO FREDDY, PT WILL BE TRANSFERED PER ACLS PROTOCOL.
--- NOTE | 2020-04-28 22:46 | NUR ---
PT TRANSFERED PER ACLS PROTOCOL
[2020-04-28 22:50] VITALS: BP 156/83
[2020-04-28] MEDS: DONEPEZIL 5 MG TABLET PO SCH (22:50)
--- NOTE | 2020-04-28 22:50 | NUR ---
RN NOTE RECEIVED PATIENT FROM ER. NOT IN ANY ACUTE DISTRESS. ALERT AND ORIENTED TO SELF, NONCOHERENT. PUT ON TELE MONITOR. PATIENT WITH RIGHT HAND AND LEFT HAND IV LINE G 20, BOTH PATENT AND INTACT, FLUSHED. NO SIGNS OF INFILTRATION NOTED. TREMORS NOTED ON UPPER AND LOWER EXTREMITIES. BODY CHECKED DONE, PICTURES TAKEN WAS PUT ON THE CHART. ALL SAFETY MEASURES IMPLEMENTED PER PROTOCOL, BED LOCKED IN LOWEST POSITION. SIDE RAILS UP. CALL LIGHT WITHIN REACH. BP 156/83 P 87 T 98 R 20.
[2020-04-28 22:59] LABS: C-REACTIVE PROTEIN 6.4 mg/dL (0.0-0.9)
[2020-04-29] MEDS ORDERED: MEROPENEM 500 MG in IV NS 0.9% 50 ML IV ONE (00:30)
[2020-04-29] MEDS ORDERED: MEROPENEM 500 MG VIAL IV ONE (01:54)
--- NOTE | 2020-04-29 03:05 | NUR ---
RN NOTE PATIENT PULLED OUT IV ON LEFT HAND, MINIMAL BLEEDING NOTED WITH NO SIGNS OF INFECTION. DRESSING APPLIED.
[2020-04-29] MEDS ORDERED: MEROPENEM 500 MG in IV NS 0.9% 50 ML IV SCH (05:00)
[2020-04-29 07:08] LABS: BASOPHILS % (AUTO) 0.7 % (0.0-2.0); EOSINOPHILS % (AUTO) 4.7 % (0.0-6.0); HEMATOCRIT 25 % (33-45); HEMOGLOBIN 8.2 g/dL (11.5-14.8); LYMPHOCYTES # (AUTO) 0.7 /CMM (0.8-4.8); LYMPHOCYTES % (AUTO) 19.9 % (20.0-44.0); MEAN CORPUSCULAR HGB CONC 33 g/dl (31.0-36.0); MEAN CORPUSCULAR VOLUME 92 fL (82-100); MONOCYTES # (AUTO) 0.5 /CMM (0.1-1.30); MONOCYTES % (AUTO) 14.2 % (2.0-12.0); NEUTROPHILS # (AUTO) 2.3 /CMM (1.8-8.9); NEUTROPHILS % (AUTO) 60.5 % (43.0-81.0); PLATELET COUNT (AUTO) 226 /CMM (150-450); RED BLOOD CELL COUNT(AUTO) 2.71 MIL/uL (4.0-5.2); WHITE BLOOD COUNT (AUTO) 3.7 K/uL (4.3-11.0)
[2020-04-29 07:25] LABS: CALCIUM, SERUM 8.7 mg/dL (8.5-10.1); CARBON DIOXIDE 20 mmol/L (21-32); CHLORIDE 110 mmol/L (98-107); CREATININE 1.4 mg/dL (0.6-1.3); GLUCOSE 87 mg/dL (74-106); MAGNESIUM 1.9 mg/dL (1.8-2.4); PHOSPHORUS 2.8 mg/dL (2.5-4.9); POTASSIUM 3.9 mmol/L (3.5-5.1); SODIUM SERUM 142 mmol/L (136-145); UREA NITROGEN, BLOOD 14 mg/dL (7-18)
--- NOTE | 2020-04-29 07:44 | NUR ---
RN CLOSING NOTES PATIENT REMAINS IN BED, SLEEPING COMFORTABLY. EASILY AROUSABLE TO VERBAL STIMULI. TELE MONITOR SHOWS SR HR 90S. NOT IN ANY ACUTE DISTRESS. WITH RIGHT HAND G 20, IVF RUNNING AT 75ML/HR. NO SIGNS OF INFILTRATION. KEEP CLEAN AND DRY. PATIENT REMAINS NPO. ALL SAFETY MEASURES IMPLEMENTED PER PROTOCOL, BED LOCKED IN LOWEST POSITION. SIDE RAILS UP. CALL LIGHT WITHIN REACH.WILL ENDORSE TO AM SHIFT FOR ILDEFONSO.
--- NOTE | 2020-04-29 08:00 | NUR ---
RN Opening note Received patient in bed, able to physical stimuli, does no appears pain or discomfort. Skin is warm to touch keep clean/dry, intact IV site on right hand 20g running NS at 75ml/hr. Respiratory even and unlabored on room air, no sob or distress observed. Kept bed locked with elevated HOB for ensure airway and aspiration precaution also lowest bed position for safety. Call light within reach will continue to monitor.
[2020-04-29] MEDS: LEVOTHYROXINE SODIUM 75 MCG TABLET PO SCH (08:02)
[2020-04-29] MEDS: busPIRone 5 MG TABLET PO SCH ×2 (09:00→17:16)
[2020-04-29] MEDS: MULTIVIT W/MINERALS 1 TAB TABLET PO SCH (09:00)
[2020-04-29] MEDS: MEGESTROL ACETATE 40 MG TABLET PO SCH ×2 (09:00→17:16)
[2020-04-29] MEDS: AMLODIPINE BESYLATE 10 MG TABLET PO SCH (09:00)
[2020-04-29] MEDS: DOCUSATE SODIUM 100 MG CAPSULE PO SCH (09:00)
[2020-04-29] MEDS: MEMANTINE HCL 5 MG TABLET PO SCH ×2 (09:00→17:16)
[2020-04-29] MEDS ORDERED: LORATADINE 10 MG TAB.RAPDIS 24H PO SCH (09:00)
[2020-04-29] MEDS: LISINOPRIL (10MG) 10 MG TABLET PO SCH (09:00)
[2020-04-29] MEDS: LORATADINE 10 MG TABLET PO SCH (09:00)
[2020-04-29] MEDS: MEROPENEM 500 MG in IV NS 0.9% 100 ML IV SCH (13:18)
[2020-04-29] MEDS ORDERED: SERTRALINE HCL 50 MG TABLET PO SCH (18:00)
--- NOTE | 2020-04-29 18:35 | NUR ---
RN Closing note Patient in bed finished dinner and consumed 75% assisted by feeder, does no appears pain or distress. Skin is warm to touch intact IV site, skin care and oral care provided, no fever observed during day shift. Respiratory even and unlabored on room air O2sat 99%. Kept locked bed with elevated HOB for ensure airway and aspiration precaution also lowest position for safety, call light within reach, will endorse night cleaner.
[2020-04-29 20:00] VITALS: BP 149/63
--- NOTE | 2020-04-29 20:00 | NUR ---
RN NOTE RECEIVED PT IN BED, PT IS CONFUSED, ON RA SATING 95%, PT HAS UNLABORED BREATHING. SAFETY MEASURES IN PLACE.
[2020-04-29] MEDS: DONEPEZIL 5 MG TABLET PO SCH (22:40)
[2020-04-30] VITALS: BP 137/76
[2020-04-30] MEDS: MEROPENEM 500 MG in IV NS 0.9% 100 ML IV SCH ×2 (02:28→13:13)
[2020-04-30 04:00] VITALS: BP 139/77
[2020-04-30 07:13] LABS: CALCIUM, SERUM 8.4 mg/dL (8.5-10.1); CREATININE 1.3 mg/dL (0.6-1.3)
--- NOTE | 2020-04-30 07:35 | NUR ---
RN NOTE PT STAYED STABLE NO ACUTE CHANGES REPORT GIVEN FOR ILDEFONSO.
--- NOTE | 2020-04-30 07:54 | NUR ---
EDITORIAL PROJECT MANAGER OPEN NOTES PATIENT IS A/O X 1 WITH NO SIGNS OF DISTRESS IN ROOM AIR. NO COMPLAIN OF PAIN AT THIS TIME. TELE MONITOR. IV R HAND #20G RUNNING NS AT 75 ML/HR. SAFETY MEASURES ARE APPLIED, BED IS IN LOW POSITION SIDE RAILS UP X 2. CALL LIGHT WITHIN REACH WILL CONTINUE TO MONITOR.
[2020-04-30 08:00] VITALS: BP 142/54
[2020-04-30] MEDS ORDERED: ASPIRIN 81 MG TAB.CHEW PO SCH (09:00)
[2020-04-30] MEDS: busPIRone 5 MG TABLET PO SCH (10:42)
[2020-04-30] MEDS: MULTIVIT W/MINERALS 1 TAB TABLET PO SCH (10:42)
[2020-04-30] MEDS: LORATADINE 10 MG TABLET PO SCH (10:43)
[2020-04-30] MEDS: MEGESTROL ACETATE 40 MG TABLET PO SCH (10:43)
[2020-04-30] MEDS: DOCUSATE SODIUM 100 MG CAPSULE PO SCH (10:43)
[2020-04-30] MEDS: AMLODIPINE BESYLATE 10 MG TABLET PO SCH (10:43)
[2020-04-30] MEDS: LISINOPRIL (10MG) 10 MG TABLET PO SCH (10:43)
[2020-04-30] MEDS: MEMANTINE HCL 5 MG TABLET PO SCH (10:46)
[2020-04-30 12:00] VITALS: BP 137/50
--- NOTE | 2020-04-30 15:00 | NUR ---
CALLED [facility] TO GIVE REPORT ON PATIENT. SPOKE WITH PHILIPPE PAULINO.
--- NOTE | 2020-04-30 16:00 | NUR ---
DISCHARGE NOTES PATIENT IS A/O X 1 WITH NO SIGNS OF DISTRESS IN ROOM. PATIENT VITALS ARE WITHIN NORMAL LIMIT AND REMAINED AFEBRILE. NO SIGNS OF PAIN. PATIENT UNABLE TO SIGN DISCHARGE PAPER WORK AND BELONGING LIST, IT WAS SIGNED BY TWO RN WITNESSED. DISCHARGE PHOTOS WERE TAKEN. IV R HAND #20G WAS LEFT ON, WILL HAVE CONT ABX IV. PATIENT LEFT VIA GURNEY WITH AMBULANCE.
== END 2020-04-30 16:03 | DRG 177 ==
LOC: ER 16:30 → TELE-TD 21:20 → TELE1 22:47
PROVIDERS: ADMIT Registered Nurse; ATTEND Nurse Practitioner Acute Care
DX: U07.1 COVID-19 (principal); I21.A1 Myocardial infarction type 2; G93.41 Metabolic encephalopathy; N17.0 Acute kidney failure with tubular necrosis; N39.0 Urinary tract infection, site not specified; J81.1 Chronic pulmonary edema; Z16.12 Extended spectrum beta lactamase (ESBL) resistance; D68.59 Other primary thrombophilia; I12.9 Hypertensive chronic kidney disease with stage 1 through stage 4 chronic kidney disease, or unspecified chronic kidney disease; F32.9 Major depressive disorder, single episode, unspecified; G30.9 Alzheimer's disease, unspecified; F02.80 Dementia in other diseases classified elsewhere, unspecified severity, without behavioral disturbance, psychotic disturbance, mood disturbance, and anxiety; N18.9 Chronic kidney disease, unspecified; Z20.828 Contact with and (suspected) exposure to other viral communicable diseases; E78.5 Hyperlipidemia, unspecified; D63.1 Anemia in chronic kidney disease; F41.9 Anxiety disorder, unspecified; M47.812 Spondylosis without myelopathy or radiculopathy, cervical region; Z90.710 Acquired absence of both cervix and uterus; Z88.2 Allergy status to sulfonamides; Z79.899 Other long term (current) drug therapy; Z74.09 Other reduced mobility; D63.8 Anemia in other chronic diseases classified elsewhere; E03.9 Hypothyroidism, unspecified
CPT/HCPCS: 36415; 71045-TC; 80048-TC; 80076-TC; 81001; 82550-TC; 82728-TC; 83605-TC; 83615-TC; 83735-TC; 84100-TC; 84484-TC; 85025-TC; 85378-TC; 85730-TC; 86140-TC; 87040-TC; 87081-TC; 87086-TC; 87186-TC; 92526; 92611-TC; C9803; G0378; J2185; J7030; U0003